=== PATIENT | male | born 1925 | race African-American/Black ===

== ENCOUNTER → 2016-04-11 | Day surgery (SDC) | payer MEDICARE, OTHER ==
[~2016-04-11] VITALS: Ht 188 cm; Wt 73.9 kg
[~2016-04-11] MED LIST: *morphine SULFATE 8 MG/ML PERIprocedure ONLY ONE; ACETAMINOPHEN 325MG/HYDROcodone 7.5MG/15ML UDC PO PRN; AMLO5 PO; APLI5INJ2 ID; ASPI-110 PO; ASPI81TA82 PO; C 50TAB PO; CEFT2INJ IV; CLEAPOW6 PO; CLINDAMYCIN 300 MG/NS 100 ML IV ONE; CLOP75TA PO; COZA50TA PO; DEXAMETHASONE SOD PHOS 4 MG/ML VIAL ONE; DO NOT ADM ANY ANTICOAGULANT DRUGS XX PRN; EXTR500C PO; FAMOTIDINE 20 MG/2 ML VIAL ONE; FERR324T4 PO; FERR325T PO; FERR325T2 PO; FURO20 PO; INSULIN HUMAN REGULAR 1,000 UNITS/10 ML VIAL SQ PRN; LACTATED RINGER'S 1000 ML INJ 1,000 ML IV SCH; LACTATED RINGER'S 1000 ML IV SCH; LOSA50TA PO; METOPROLOL TARTRATE 25 MG TAB PO PRN; NEOSTIGMINE 3 MG/3 ML SYR IV ONE; NRSS SQ; ONDANSETRON HCL 4 MG/2 ML VIAL IV PUSH ONE; OXYMETAZOLINE HCL 0.05% 15 ML NASAL SPRAY ONE; PERC5TAB12 PO; PROPOFOL 200 MG/20 ML AMP IV ONE; PROT40TA PO; ROPI2 PO; SODIUM CHLORID 0.9% 500 ML IV SCH; VIT250TA PO; VITA-13 PO; VITA100064 PO; ZOLP5TAB3 PO
[2016-04-11 11:14] VITALS: BP 124/63; PULSE 50; RESP 16; TEMP 97.6; O2SAT 98
[2016-04-11 13:47] VITALS: BP 183/70; PULSE 60; RESP 16; TEMP 97.5; O2SAT 100
--- NOTE | 2016-04-11 21:42 | EKG ---
Date Performed: 04/11/2016 Time Performed: 10:47:59 PTAGE: 89 years EKG: SINUS BRADYCARDIA MINIMAL VOLTAGE CRITERIA FOR LVH, CONSIDER NORMAL VARIANT BORDERLINE ECG PREVIOUS TRACING : 07/14/2013 22.25 Compared to prior tracing no significant change DOCTOR: Annie Patel Interpretating Date/Time 04/11/2016 21:39:50
--- NOTE | 2016-08-10 12:50 | MP ---
cc: NGA BALBUENA M.D. DATE OF SURGERY: 04/11/2016 SURGEON: Nga Balbuena MD. PREOPERATIVE DIAGNOSIS: Neoplastic lesion of right piriform sinus. POSTOPERATIVE DIAGNOSIS: Neoplastic lesion of right piriform sinus. OPERATION: Direct laryngoscopy with biopsy. INDICATIONS FOR PROCEDURE: Indications are documented in the history and physical. DESCRIPTION OF OPERATION The patient was taken to OR #6 and placed in the supine position following induction of general anesthesia and intubation a shoulder roll and a Hill head drape were put in place and the patient was draped for surgery. A dental guard was put in place and then using a Dedo laryngoscope hypopharynx and larynx were brought into view. The lesion of the right pyriform sinuses immediately identified and biopsies were obtained from this area and passed off the field for histological examination, the remainder of the hypopharynx and larynx was free of lesions. The scope was removed and procedure was terminated. The patient was reversed from anesthesia and taken to recovery in good condition. There were no complications. Blood loss was 10 ml. MD YUSRA De Oliveira/ritu /1:00 PM /12:49 PM
== END | disposition home or self-care (01) ==
LOC: HSDC 10:12
PROVIDERS: ATTEND Otolaryngology
DX: C34.90 Malignant neoplasm of unspecified part of unspecified bronchus or lung (principal); Z01.810 Encounter for preprocedural cardiovascular examination
CPT/HCPCS: 00320; 31540; 88305; 93005; J1100; J2270; J2405; J2710; J7120; 88311

== ENCOUNTER 2016-08-13 10:26 | Inpatient (IN) | payer MEDICARE, OTHER ==
[~2016-08-13] VITALS: Ht 188 cm; Wt 65.4 kg
[~2016-08-13 10:26] MED LIST changes: -*morphine SULFATE 8 MG/ML PERIprocedure ONLY ONE; -ACETAMINOPHEN 325MG/HYDROcodone 7.5MG/15ML UDC PO PRN; -APLI5INJ2 ID; -ASPI81TA82 PO; -CEFT2INJ IV; -CLEAPOW6 PO; -CLINDAMYCIN 300 MG/NS 100 ML IV ONE; -COZA50TA PO; -DEXAMETHASONE SOD PHOS 4 MG/ML VIAL ONE; -DO NOT ADM ANY ANTICOAGULANT DRUGS XX PRN; -EXTR500C PO; -FAMOTIDINE 20 MG/2 ML VIAL ONE; -FERR324T4 PO; -FERR325T2 PO; -FURO20 PO; -INSULIN HUMAN REGULAR 1,000 UNITS/10 ML VIAL SQ PRN; -LACTATED RINGER'S 1000 ML INJ 1,000 ML IV SCH; -LACTATED RINGER'S 1000 ML IV SCH; -METOPROLOL TARTRATE 25 MG TAB PO PRN; -NEOSTIGMINE 3 MG/3 ML SYR IV ONE; -NRSS SQ; -ONDANSETRON HCL 4 MG/2 ML VIAL IV PUSH ONE; -OXYMETAZOLINE HCL 0.05% 15 ML NASAL SPRAY ONE; -PERC5TAB12 PO; -PROPOFOL 200 MG/20 ML AMP IV ONE; -PROT40TA PO; -ROPI2 PO; -SODIUM CHLORID 0.9% 500 ML IV SCH; -VIT250TA PO; -VITA-13 PO; -ZOLP5TAB3 PO
[2016-08-13 10:29] VITALS: BP 150/71; PULSE 66; RESP 24; TEMP 97.6; O2SAT 99
[2016-08-13] MEDS ORDERED: SODIUM CHLOR 0.9% 1000 ML INJ 1,000 ML IV SCH (11:19)
[2016-08-13] MEDS ORDERED: DEXAMETHASONE SOD PHOS 4 MG/ML VIAL IV PUSH ONE (11:30)
[2016-08-13 11:38] LABS: AUTOMATED NEUTROPHIL # 5.2 TH/MM3 (1.8-7.7); BASOPHIL # 0.1 TH/MM3 (0-0.2); BASOPHIL % 0.8 % (0.0-2.0); EOSINOPHIL # 0.1 TH/MM3 (0-0.4); EOSINOPHIL % 0.8 % (0.0-4.0); HEMO FLAGS DIFF FINAL; LYMPH % 13.7 % (9.0-44.0); MEAN CELL VOLUME 76.7 FL (80.0-100.0); MEAN CORPUSCULAR HEMOGLOBIN 24.4 PG (27.0-34.0); MEAN CORPUSCULAR HGB CONC 31.7 % (32.0-36.0); MONO % 10.1 % (0.0-8.0); NEUT % 74.6 % (16.0-70.0); PLATELET COUNT 232 TH/MM3 (150-450); RED BLOOD COUNT 4.05 MIL/MM3 (4.50-5.90); RED CELL DISTRIBUTION WIDTH 16.6 % (11.6-17.2)
[2016-08-13 11:47] VITALS: O2SAT 100
--- NOTE | 2016-08-13 11:48 | PD ---
HPI Chief Complaint: Back/ Neck Pain or Injury Time Seen by Provider: 11:48 Travel History International Travel<30 days: No Contact w/Intl Traveler<30days: No Traveled to known affect area: No History of Present Illness HPI 89-year-old male with history of dementia, diabetes, hypertension, primary lung , and neck cancer, presents to emergency department for evaluation of worsening neck pain and difficulty swallowing. Patient's accompanies him and states that he was diagnosed with a throat cancer approximately one month ago. He was to start radiation treatment Dr. Gray, but she states they have not been contacted in regards to this. She states that the patient has been drooling more often and she saw this morning that he was absolutely unable to swallow any food. Patient is minimally verbal. He grimaces and points to his neck. Patient's states he has otherwise been well. No recent illnesses, fever, or chills. He has no other symptoms to report this time. PFSH Past Medical History Arthritis: Yes Blood Disorders: No Heart Rhythm Problems: No Cancer: No Cardiovascular Problems: No High Cholesterol: Yes Chest Pain: No Congestive Heart Failure: No Cerebrovascular Accident: Yes Diabetes: Yes Patient Takes Glucophage: No Diminished Hearing: Yes (BILATERAL HEARING AIDS) Endocrine: Yes GERD: Yes Glaucoma: No Genitourinary: No Hepatitis: No Hiatal Hernia: No Hypertension: Yes Immune Disorder: No Insomnia: Yes Musculoskeletal: No Neurologic: No (DEMENTIA) Psychiatric: No Respiratory: No Renal Failure: Yes Thyroid Disease: No Tetanus Vaccination: Unknown Influenza Vaccination: No Past Surgical History Abdominal Surgery: No Appendectomy: Yes Cardiac Surgery: No Ear Surgery: No Endocrine Surgery: No Eye Surgery: No Genitourinary Surgery: No Gynecologic Surgery: No Joint Replacement: Yes (LEFT KNEE REPLACED) Oral Surgery: No Thoracic Surgery: No Other Surgery: Yes Social History Alcohol Use: No Tobacco Use: No Substance Use: No Allergies-Medications (Allergen,Severity, Reaction): Coded Allergies: Penicillin (Verified Allergy, Severe, 08/13/16) HIVES Reported Meds & Prescriptions Reported Meds & Active Scripts Active Reported Ferrous Sulfate DR (Ferrous Sulfate) 325 Mg Tabdr 325 Mg PO DAILY Losartan (Losartan Potassium) 50 Mg Tab 50 Mg PO DAILY Clopidogrel (Clopidogrel Bisulfate) 75 Mg Tab 75 Mg PO DAILY Vitamin D (Cholecalciferol) 1,000 Unit Tab 1,000 Units PO DAILY Aspirin 81 (Aspirin) 81 Mg Tabdr 81 Mg PO DAILY C 500 (Ascorbic Acid) 500 Mg Tab 500 Mg PO DAILY Norvasc (Amlodipine Besylate) 5 Mg Tab 5 Mg PO DAILY Review of Systems Except as stated in HPI: all other systems reviewed are Neg Physical Exam Narrative GENERAL: Thin elderly male patient, minimally verbal, in no apparent distress. SKIN: Focused skin assessment warm/dry. HEAD: Atraumatic. Normocephalic. EYES: Pupils equal and round. No scleral icterus. No injection or drainage. ENT: No nasal bleeding or discharge. Mucous membranes pink and moist. NECK: Trachea midline. No JVD. Tenderness elicited to palpation along the mandible and right interior lateral neck. CARDIOVASCULAR: Bradycardic rate and rhythm. No murmur appreciated. RESPIRATORY: No accessory muscle use. Coarse, diminished to auscultation. Breath sounds equal bilaterally. GASTROINTESTINAL: Abdomen soft, non-tender, nondistended. Hepatic and splenic margins not palpable. MUSCULOSKELETAL: No obvious deformities. No clubbing. No cyanosis. No edema. NEUROLOGICAL: Awake and alert. No obvious cranial nerve deficits. Minimal speech. Data Data Last Documented VS Vital Signs Date Time Temp Pulse Resp B/P Pulse Ox O2 Delivery O2 Flow Rate FiO2 08/13/16 12:00 56 24 168/74 98 Room Air 08/13/16 10:29 97.6 Orders Basic Metabolic Panel (Bmp) (08/13/16 11:19) Complete Blood Count With Diff (08/13/16 11:19) Prothrombin Time / Inr (Pt) (08/13/16 11:19) Act Partial Throm Time (Ptt) (08/13/16 11:19) Iv Access Insert/Monitor (08/13/16 11:19) Ecg Monitoring (08/13/16 11:19) Oximetry (08/13/16 11:19) Sodium Chlor 0.9% 1000 Ml Inj (Ns 1000 M (08/13/16 11:19) Sodium Chloride 0.9% Flush (Ns Flush) (08/13/16 11:30) Electrocardiogram (08/13/16 11:19) Ct Soft Tiss Neck W Iv Cont (08/13/16 ) Dexamethasone Inj (Decadron Inj) (08/13/16 11:30) Iohexol 350 Inj (Omnipaque 350 Inj) (08/13/16 12:51) Labs Laboratory Tests Test 08/13/16 11:25 White Blood Count 7.0 TH/MM3 Red Blood Count 4.05 MIL/MM3 Hemoglobin 9.9 GM/DL Hematocrit 31.0 % Mean Corpuscular Volume 76.7 FL Mean Corpuscular Hemoglobin 24.4 PG Mean Corpuscular Hemoglobin 31.7 % Concent Red Cell Distribution Width 16.6 % Platelet Count 232 TH/MM3 Mean Platelet Volume 9.3 FL Neutrophils (%) (Auto) 74.6 % Lymphocytes (%) (Auto) 13.7 % Monocytes (%) (Auto) 10.1 % Eosinophils (%) (Auto) 0.8 % Basophils (%) (Auto) 0.8 % Neutrophils # (Auto) 5.2 TH/MM3 Lymphocytes # (Auto) 1.0 TH/MM3 Monocytes # (Auto) 0.7 TH/MM3 Eosinophils # (Auto) 0.1 TH/MM3 Basophils # (Auto) 0.1 TH/MM3 CBC Comment DIFF FINAL Differential Comment Prothrombin Time 11.0 SEC Prothromb Time International 1.0 RATIO Ratio Activated Partial 25.1 SEC Thromboplast Time Sodium Level 140 MEQ/L Potassium Level 4.5 MEQ/L Chloride Level 106 MEQ/L Carbon Dioxide Level 27.7 MEQ/L Anion Gap 6 MEQ/L Blood Urea Nitrogen 31 MG/DL Creatinine 1.81 MG/DL Estimat Glomerular Filtration 43 ML/MIN Rate Random Glucose 80 MG/DL Calcium Level 8.8 MG/DL [facility] Medical Decision Making Medical Screen Exam Complete: Yes Emergency Medical Condition: Yes Medical Record Reviewed: Yes Differential Diagnosis Metastatic disease versus obstruction versus electrode abnormality versus neoplasm Narrative Course 89-year-old male presents to the emergency department for evaluation of worsening neck pain, difficulty swallowing. Patient appears without distress. He does have tenderness with palpation of the anterior lateral right neck. He is given Decadron IV and lab work is collected. Laboratory Tests Test 08/13/16 11:25 White Blood Count 7.0 TH/MM3 Red Blood Count 4.05 MIL/MM3 Hemoglobin 9.9 GM/DL Hematocrit 31.0 % Mean Corpuscular Volume 76.7 FL Mean Corpuscular Hemoglobin 24.4 PG Mean Corpuscular Hemoglobin 31.7 % Concent Red Cell Distribution Width 16.6 % Platelet Count 232 TH/MM3 Mean Platelet Volume 9.3 FL Neutrophils (%) (Auto) 74.6 % Lymphocytes (%) (Auto) 13.7 % Monocytes (%) (Auto) 10.1 % Eosinophils (%) (Auto) 0.8 % Basophils (%) (Auto) 0.8 % Neutrophils # (Auto) 5.2 TH/MM3 Lymphocytes # (Auto) 1.0 TH/MM3 Monocytes # (Auto) 0.7 TH/MM3 Eosinophils # (Auto) 0.1 TH/MM3 Basophils # (Auto) 0.1 TH/MM3 CBC Comment DIFF FINAL Differential Comment Prothrombin Time 11.0 SEC Prothromb Time International 1.0 RATIO Ratio Activated Partial 25.1 SEC Thromboplast Time Sodium Level 140 MEQ/L Potassium Level 4.5 MEQ/L Chloride Level 106 MEQ/L Carbon Dioxide Level 27.7 MEQ/L Anion Gap 6 MEQ/L Blood Urea Nitrogen 31 MG/DL Creatinine 1.81 MG/DL Estimat Glomerular Filtration 43 ML/MIN Rate Random Glucose 80 MG/DL Calcium Level 8.8 MG/DL Last Impressions Neck CT 08/13/16 0000 Signed Impressions: Service Date/Time: Saturday, August 13, 2016 12:40 - CONCLUSION: Mass in the low right oropharynx. Left apical lung mass. Franc Ramachandran MD A call was placed to Dr. Castanon to discuss plan of care. Dr. Granda returned the call, but advised contacting Dr. Castanon in the [facility] office. [id number] Castanon. He requested an admission for pain control/discuss palliative measures with family and he will consult on the patient. Diagnosis Primary Impression: Mass of oropharynx Additional Impressions: Difficulty swallowing Qualified Code: R13.10 - Dysphagia, unspecified type Neck pain on right side Admitting Information Admitting Physician Requests: Observation Condition: Stable Alyssa Samuels AKIL Aug 13, 2016 11:48
[2016-08-13 11:55] LABS: APTT (PATIENT) 25.1 SEC (24.3-30.1); BICARBONATE 27.7 MEQ/L (21.0-32.0); POTASSIUM 4.5 MEQ/L (3.5-5.1)
[2016-08-13 12:00] VITALS: BP 168/74; PULSE 56; RESP 24; O2SAT 98
[2016-08-13] MEDS ORDERED: IOHEXOL 350 MG/ML 10 ML VIAL (for RAD DIAG) IV ONE (12:51)
--- NOTE | 2016-08-13 13:06 | RADRPT ---
EXAM DATE/TIME: 08/13/2016 12:40 [facility] COMPARISON: No previous studies available for comparison. INDICATIONS : Right neck pain and difficulty swallowing. History of neck cancer. IV CONTRAST: 75 cc Omnipaque 350 (iohexol) IV RADIATION DOSE: 17.64 CTDIvol (mGy) MEDICAL HISTORY : Diabetes mellitus type 2. Dementia. Hypertension.Neck cancer SURGICAL HISTORY : None. ENCOUNTER: Initial ACUITY: 1 day PAIN SCALE: 0/10 LOCATION: Right neck TECHNIQUE: Volumetric scanning of the neck was performed. Using automated exposure control and adjustment of th e mA and/or kV according to patient size, radiation dose was kept as low as reasonably achievable to obtain optimal diagnostic quality images. DICOM format image data is available electronically for r eview and comparison. FINDINGS: There is a large mass in the right oropharynx which appears to extend down to the level of the larynx with some asymmetric bowing and thickening of the right vocal cord. A lobular left apical lung mass is present. The visualized brain and orbitofacial structures are unremarkable. There is no definite evidence of pathologic cervical lymphadenopathy. No supraclavicular adenopathy i s present. CONCLUSION: Mass in the low right oropharynx. Left apical lung mass. Franc Ramachandran MD on August 13, 2016 at 12:58 Board Certified Radiologist. This report was verified electronically.
[2016-08-13] MEDS ORDERED: FERR325T2 PO (14:01)
[2016-08-13] MEDS: DEXT 5%-NACL 0.9% 1000 ML INJ 1,000 ML IV SCH (14:54)
--- NOTE | 2016-08-13 15:49 | RADRPT ---
EXAM DATE/TIME: 08/13/2016 15:42 [facility] COMPARISON: No previous studies available for comparison. INDICATIONS : Shortness of breath. Cough. MEDICAL HISTORY : Diabetes mellitus type 2. Dementia. Hypertension.Neck cancer SURGICAL HISTORY : None. ENCOUNTER: Initial ACUITY: 1 day PAIN SCORE: 0/10 LOCATION: Bilateral chest FINDINGS: Patchy airspace disease is present in the left upper lobe suspicious for inflammatory process. There is minimal elevation left hemidiaphragm. The right lung is clear. The heart and pulmonary vascular ity are normal. The portion of the bony skeleton visualized is unremarkable. CONCLUSION: Minimal parenchymal changes left upper lobe suspicious for an early inflammatory proc ess. Benny Esquivel MD FACR on August 13, 2016 at 15:46 Board Certified Radiologist. This report was verified electronically.
--- NOTE | 2016-08-13 15:53 | HHI.HP ---
[facility] Rashi Lott Admission Diagnosis oropharynx mass; dysphagia; dehydration; neck/lung ca Diagnoses: Chief Complaint: difficulty swallowing Travel History International Travel<30 Days: No Contact w/Intl Traveler <30 Da: No Traveled to Known Affected Are: No History of Present Illness patient is an 89 years sold male with history of non small cell Lung cancer 2015 - refused treatment then. 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 He presented today with increasing anterior neck pain/discomfort and difficulty swallowing. With decreasing po intake. Patient admitted for further evaluation and management. Voice hoarseness worsening. Patient denies any fever or chills, admits to choking sensation, denies any headaches, abdominal pain, bone pain. Review of Systems Constitutional: DENIES: Diaphoretic episodes, Fatigue, Fever, Weight gain, Weight loss, Chills, Dizziness, Change in appetite, Night Sweats Endocrine: DENIES: Heat/cold intolerance, Polydipsia, Polyuria, Polyphagia Eyes: DENIES: Blurred vision, Diplopia, Eye inflammation, Eye pain, Vision loss , Photosensitivity, Double Vision Ears, nose, mouth, throat: COMPLAINS OF: Hoarseness Respiratory: COMPLAINS OF: Cough Cardiovascular: DENIES: Chest pain, Palpitations, Syncope, Dyspnea on Exertion , PND, Lower Extremity Edema, Orthopnea, Claudication Gastrointestinal: DENIES: Abdominal pain, Black stools, Bloody stools, Constipation, Diarrhea, Nausea, Vomiting, Difficulty Swallowing, Anorexia Genitourinary: DENIES: Sexual dysfunction, Urinary frequency, Urinary incontinence, Urgency, Hematuria, Dysuria, Nocturia, Penile Discharge, Testicular Pain, Testicular Swelling Musculoskeletal: DENIES: Joint pain, Muscle aches, Stiffness, Joint Swelling, Back pain, Neck pain Integumentary: DENIES: Abnormal pigmentation, Nail changes, Pruritus, Rash Hematologic/lymphatic: DENIES: Bruising, Lymphadenopathy Immunologic/allergic: DENIES: Eczema, Urticaria Neurologic: DENIES: Abnormal gait, Headache, Localized weakness, Paresthesias, Seizures, Speech Problems, Tremor, Poor Balance Psychiatric: DENIES: Anxiety, Confusion, Mood changes, Depression, Hallucinations, Agitation, Suicidal Ideation, Homicidal Ideation, Delusions Past Family Social History Past Medical History hypertesnion Anemia Lung cancer PVD DM- - at one point was on oral medications- per patient discontinued Past Surgical History right hallux amputation left knee surgery right anterior tibial angioplasty/atherectomy Reported Medications Amlodipine 5 mg daily Ferrous sulfate 325 mg po daily Vit C 500 mg daily' Vit D daily Allergies: Coded Allergies: Penicillin (Verified Allergy, Severe, 08/13/16) HIVES Family History + family history of cancer Social History heavy smoker quit 20 years ago no chornic alcohol use Physical Exam Vital Signs Vital Signs Date Time Temp Pulse Resp B/P Pulse Ox O2 Delivery O2 Flow Rate FiO2 08/13/16 12:00 56 24 168/74 98 Room Air 08/13/16 11:47 100 Room Air 08/13/16 11:09 70 20 08/13/16 10:29 97.6 66 24 150/71 99 Room Air Physical Exam GENERAL:, in no apparent distress. hoarse voice SKIN: No rashes, ecchymoses or lesions. Cool and dry. HEAD: Atraumatic. Normocephalic. No temporal or scalp tenderness. EYES: Pupils equal round and reactive. Extraocular motions intact. No scleral icterus. No injection or drainage. ENT: Nose without bleeding, . Throat without erythema, tonsillar hypertrophy or exudate. Uvula midline. Airway patent. NECK: Trachea midline. No JVD or lymphadenopathy. Supple, nontender, no meningeal signs. CARDIOVASCULAR: Regular rate and rhythm without murmurs, gallops, or rubs. RESPIRATORY: + rhonchi. coarse breath sounds GASTROINTESTINAL: Abdomen soft, non-tender, nondistended.. No guarding. MUSCULOSKELETAL: Extremities without clubbing, cyanosis, or edema. No joint tenderness, effusion, or edema noted. No calf tenderness. Negative Homans sign bilaterally. NEUROLOGICAL: Awake and alert. Cranial nerves II through XII intact. Motor and sensory grossly within normal limits. Five out of 5 muscle strength in all muscle groups. Normal speech. Laboratory Laboratory Tests Test 08/13/16 11:25 White Blood Count 7.0 Red Blood Count 4.05 Hemoglobin 9.9 Hematocrit 31.0 Mean Corpuscular Volume 76.7 Mean Corpuscular Hemoglobin 24.4 Mean Corpuscular Hemoglobin 31.7 Concent Red Cell Distribution Width 16.6 Platelet Count 232 Mean Platelet Volume 9.3 Neutrophils (%) (Auto) 74.6 Lymphocytes (%) (Auto) 13.7 Monocytes (%) (Auto) 10.1 Eosinophils (%) (Auto) 0.8 Basophils (%) (Auto) 0.8 Neutrophils # (Auto) 5.2 Lymphocytes # (Auto) 1.0 Monocytes # (Auto) 0.7 Eosinophils # (Auto) 0.1 Basophils # (Auto) 0.1 CBC Comment DIFF FINAL Differential Comment Prothrombin Time 11.0 Prothromb Time International 1.0 Ratio Activated Partial 25.1 Thromboplast Time Sodium Level 140 Potassium Level 4.5 Chloride Level 106 Carbon Dioxide Level 27.7 Anion Gap 6 Blood Urea Nitrogen 31 Creatinine 1.81 Estimat Glomerular Filtration 43 Rate Random Glucose 80 Calcium Level 8.8 Result Diagram: 08/13/16 1125 08/13/16 1125 Imaging Last Impressions Neck CT 08/13/16 0000 Signed Impressions: Service Date/Time: Saturday, August 13, 2016 12:40 - CONCLUSION: Mass in the low right oropharynx. Left apical lung mass. Franc Ramachandran MD Assessment and Plan Assessment and Plan 89 years old male Odynophagia, dysphagia , dyarthria from Extrinsic compression from Head and neck cancer start IVF. consult Radiation Oncology- Isaac Joy- hopefully radiation treatment can be initiated here to help shrink tumor - Medical Oncology was consulted Speech therapy evaluation daily may need to consider PEG- transiently to meet nutritional requirement and meds administration route get a CXR- high aspiration risk- keep NPO R/o Aspiration Pneumonia - coarse breath sounds Underlying COPD Exacerbation check CXR.- for infiltrates.if + infiltrates- start Flagyl for anaerobic coverage- + PCN allery. no WBC elevation, no fever. IV solumedrol chronic kidney insufficiency- creatinine near baseline start IVF-poor po. Microcytic anemia- check iron studies History of hypertension- monitor off CCB Heparin SQ for DVT prophylaxis PPI for GI prophylaxis Physician Certification 2 Midnight Certification Type: Admission for Inpatient Services Order for Inpatient Services The services are ordered in accordance with Medicare regulations or non- Medicare payer requirements, as applicable. In the case of services not specified as inpatient-only, they are appropriately provided as inpatient services in accordance with the 2-midnight benchmark. Estimated LOS (days): 3 days is the estimated time the patient will need to remain in the hospital, assuming treatment plan goals are met and no additional complications. Post-Hospital Plan: Not yet determined Trinh Prabhakar MD Aug 13, 2016 15:53
[2016-08-13 16:00] VITALS: BP 179/79; PULSE 57; RESP 24; O2SAT 97
[2016-08-13] MEDS: metroNIDAZOLE 500 MG INJ 100 ML IV SCH (19:18)
[2016-08-13] MEDS: methylPREDNISolone SOD SUCC 40 MG/1 ML VIAL IV PUSH SCH ×2 (19:18→21:30)
[2016-08-13] MEDS: PANTOPRAZOLE SODIUM 40 MG VIAL IV PUSH SCH (19:18)
[2016-08-13 20:00] VITALS: BP 156/72; PULSE 64; RESP 20; TEMP 97.2; O2SAT 96
[2016-08-13] MEDS: HEPARIN SODIUM - SQ 10,000 UNITS/ML VIAL SQ SCH (21:30)
[2016-08-13 21:44] VITALS: BP 136/65; PULSE 102; RESP 18; TEMP 99; O2SAT 94
[2016-08-14] VITALS: BP 147/67; PULSE 53; RESP 20; TEMP 97.9; O2SAT 97
[2016-08-14] MEDS: metroNIDAZOLE 500 MG INJ 100 ML IV SCH ×3 (02:34→17:35)
[2016-08-14] MEDS: DEXT 5%-NACL 0.9% 1000 ML INJ 1,000 ML IV SCH ×2 (02:35→13:43)
[2016-08-14] MEDS: methylPREDNISolone SOD SUCC 40 MG/1 ML VIAL IV PUSH SCH ×3 (05:28→20:43)
[2016-08-14 07:41] LABS: ANION GAP 9 MEQ/L (5-15); AST (GOT) 11 U/L (15-37); BICARBONATE 23.8 MEQ/L (21.0-32.0); BLOOD UREA NITROGEN 26 MG/DL (7-18); CHLORIDE 108 MEQ/L (98-107); GLOMERULAR FILTRATION RATE 49 ML/MIN (>89); POTASSIUM 4.5 MEQ/L (3.5-5.1); SODIUM (NA) 141 MEQ/L (136-145)
[2016-08-14 08:00] VITALS: BP 108/54; PULSE 60; RESP 16; TEMP 97.3; O2SAT 97
[2016-08-14 08:06] LABS: ALKALINE PHOSPHATASE 76 U/L (45-117); ALT (GPT) 14 U/L (12-78); FERRITIN 19 NG/ML (26-388); INDIRECT BILIRUBIN 0.2 MG/DL (0.0-0.8); TOTAL BILIRUBIN ADULT 0.3 MG/DL (0.2-1.0); TRANSFERRIN IRON PROFILE 203 MG/DL (200-360)
[2016-08-14] MEDS: HEPARIN SODIUM - SQ 10,000 UNITS/ML VIAL SQ SCH ×2 (08:21→20:42)
--- NOTE | 2016-08-14 08:32 | HHI.PR ---
Subjective Remarks states had a good night sleep coughing occasionally on his own secretions complains of throat/neck discomfort- mostly on the right side Objective Vitals Vital Signs Date Time Temp Pulse Resp B/P Pulse Ox O2 Delivery O2 Flow Rate FiO2 08/14/16 08:00 97.3 60 16 108/54 97 08/14/16 00:00 97.9 53 20 147/67 97 08/13/16 20:00 97.2 64 20 156/72 96 08/13/16 16:00 57 24 179/79 97 Room Air 08/13/16 12:00 56 24 168/74 98 Room Air 08/13/16 11:47 100 Room Air 08/13/16 11:09 70 20 08/13/16 10:29 97.6 66 24 150/71 99 Room Air I/O 08/13/16 08/13/16 08/13/16 08/14/16 08/14/16 08/14/16 07:00 15:00 23:00 07:00 15:00 23:00 Intake Total 360 ml 744 ml Output Total 400 ml 600 ml Balance -40 ml 144 ml Intake Oral 360 ml IV Total 744 ml Output Urine Total 400 ml 600 ml # Bowel Movements 0 1 Result Diagram: 08/13/16 1125 08/14/16 0551 Imaging Last Impressions Neck CT 08/13/16 0000 Signed Impressions: Service Date/Time: Saturday, August 13, 2016 12:40 - CONCLUSION: Mass in the low right oropharynx. Left apical lung mass. Franc Ramachandran MD Chest X-Ray 08/13/16 0000 Signed Impressions: Service Date/Time: Saturday, August 13, 2016 15:42 - CONCLUSION: Minimal parenchymal changes left upper lobe suspicious for an early inflammatory process. Benny Esquivel MD FACR Objective Remarks awake and alert, oriented x 3 anicteric lungs- occasional rhonchi, no wheezes regular rhythm abdomen soft, nontender extremities no edema neuro exam- non focal A/P Assessment and Plan 89 years old male Odynophagia, dysphagia , dysarthria from Extrinsic compression from Head and neck cancer consult Radiation Oncology- Isaac Joy- hopefully radiation treatment can be initiated here to help shrink tumor D/W - Medical Oncology - he will speak with Dr. Gray d/w Speech therapist- do a modified barium swallow study may need to consider PEG- transiently to meet nutritional requirement and meds administration route GI consult to evaluate- PEG placement Aspiration Pneumonia + lung infiltrates Underlying COPD Exacerbation on flagyl 500 mg IV.+ Levaquin IV solumedrol. duonebs qid chronic kidney insufficiency- creatinine near baseline continue IV Iron deficiency anemia- Microcytic anemia- IV Iron x 1. start po in am History of hypertension- - good readings - monitor off CCB Heparin SQ for DVT prophylaxis PPI for GI prophylaxis Discharge Planning case management Trinh Prabhakar MD Aug 14, 2016 08:31
[2016-08-14] MEDS: RESP: ALBUTEROL 2.5 MG/IPRATROPIUM 0.5 MG NEB (SCH) NEB ×4 (08:45→20:00)
[2016-08-14] MEDS ORDERED: IRON SUCROSE INJ 200 MG in SODIUM CHLORIDE 0.9% INJ 100 ML IV ONE (09:30)
--- NOTE | 2016-08-14 10:14 | RADRPT ---
EXAM DATE/TIME: 08/14/2016 09:40 [facility] COMPARISON: No previous studies available for comparison. INDICATIONS : Dysphagia. FLUORO TIME: 2.4 minutes IMAGE COUNT: 1 CONTRAST: Dose as prescribed by speech pathologist. MEDICAL HISTORY : Diabetes mellitus type II. Hypertension. lung ca in 2013, untreated. neck cancer SURGICAL HISTORY : None. ENCOUNTER: Initial ACUITY: 2 days PAIN SCORE: Non-responsive. LOCATION: Bilateral neck FINDINGS: A modified barium swallow was performed with speech pathology. Patient was given a variety of liquids to swallow. Penetration and possible trace aspiration was noted with thin consistencies. For a full detailed report, see report by the speech pathologist. CONCLUSION: Penetration with possible trace aspiration noted with thin liquid. Martin Beaver MD on August 14, 2016 at 10:12 Board Certified Radiologist. This report was verified electronically.
[2016-08-14] MEDS: LEVOFLOXACIN 500 MG PREMIX INJ 100 ML IV SCH (11:53)
[2016-08-14 12:00] VITALS: BP 152/68; PULSE 57; RESP 16; TEMP 97.4; O2SAT 96
--- NOTE | 2016-08-14 17:20 | EKG ---
Date Performed: 08/13/2016 Time Performed: 11:59:42 PTAGE: 89 years EKG: SINUS BRADYCARDIA MINIMAL VOLTAGE CRITERIA FOR LVH, CONSIDER NORMAL VARIANT BORDERLINE ECG PREVIOUS TRACING : 04/11/2016 10.47 Compared to prior tracing no significant change DOCTOR: Wally Albarado Interpretating Date/Time 08/14/2016 17:18:23
[2016-08-14] MEDS: PANTOPRAZOLE SODIUM 40 MG VIAL IV PUSH SCH (17:34)
[2016-08-14] MEDS ORDERED: LACTATED RINGER'S 1000 ML IV PRN (19:15)
[2016-08-14] MEDS ORDERED: INSULIN HUMAN REGULAR 1,000 UNITS/10 ML VIAL SQ PRN (19:15)
[2016-08-14] MEDS ORDERED: METOPROLOL TARTRATE 25 MG TAB PO PRN (19:15)
[2016-08-14] MEDS ORDERED: SODIUM CHLORID 0.9% 500 ML IV PRN (19:15)
[2016-08-14] MEDS ORDERED: CHLORHEXIDINE GLUCONATE 2 % 1 PACK (2 CLOTHS) TOPICAL PRN (19:15)
[2016-08-14] MEDS ORDERED: POVIDONE IODINE 5% (ANTISEPSIS KIT) 4 APPLICATIONS EACH NARE PRN (19:15)
[2016-08-14 20:19] VITALS: BP 137/56; PULSE 58; RESP 17; TEMP 98.2; O2SAT 94
--- NOTE | 2016-08-14 20:31 | MB ---
cc: GONSALO LUNDBERG LOUIS M. MD LACIERDA, ALFEA DATE OF CONSULTATION: 08/14/2016 REFERRING PHYSICIAN: Dr. Prabhakar REASON FOR CONSULTATION: Dysphagia. HISTORY This is an 89 year-old -Swedish male admitted with neck pain and difficulty swallowing. The patient has a history of sfg-ecfqy-ozfg lung cancer, was diagnosed two or three years ago but he apparently refused treatment. 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 The patient is somewhat of a poor historian. SOCIAL HISTORY He states he is . He did smoke and drink alcohol for many years but has quit. PAST MEDICAL HISTORY: Remarkable for: 1. Hypertension. 2. Chronic kidney disease. 3. History of anemia. 4. 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 5. History of nonsmall cell lung cancer. 6. Peripheral vascular disease. 7. Diabetes mellitus. PAST SURGICAL HISTORY: 1. Right hallux amputation. 2. Left knee surgery. 3. Right anterior tibial angioplasty arthrectomy. MEDICATIONS AT HOME: 1. Amlodipine 5 milligrams daily. 2. Iron sulfate 325 milligrams daily. 3. Vitamin C 500 milligrams daily. 4. Vitamin D supplement. ALLERGIES PENICILLIN. Causes hives. FAMILY HISTORY: Noncontributory. REVIEW OF SYSTEMS: Remarkable for his dysphagia and neck discomfort. He states he has had three bowel movements today without any gross bleeding. No abdominal pain or chest pain. No shortness of breath. He has had a cough. PHYSICAL EXAMINATION: Reveals a thin male in no acute distress. VITAL SIGNS: Blood pressure is 152/68, pulse 57, respiratory rate 16, nonlabored. Temperature 97.4 orally. HEENT: He is edentulous. NECK: Fullness just right of the glottis with some tenderness. LUNGS: Reveal scattered rhonchi bilaterally. HEART: Heart sounds are distant. ABDOMEN: Soft, nondistended. No focal tenderness. No masses, no organomegaly. RECTAL: Deferred. EXTREMITIES: No peripheral edema. SKIN: Warm and dry. Alert and oriented. LABORATORY WORK: Reveals a white count of 7, hemoglobin 9.9 with an MCV of 76, platelet count 232,000. INR of 1.0. BUN 26, creatinine 1.62. Iron saturation of 10%, ferritin low at 19. LFTs are unremarkable. Albumin is low at 3.1. B12 378, folate 16.6. Potassium 4.5. IMAGING STUDIES: Neck CT scan shows a mass in the low right oropharynx and a left apical lung mass. Chest x-ray shows minimal parenchymal changes, left upper lobe, suspicious for an early inflammatory process. He underwent a modified barium swallow today by speech pathology that showed mild oral phase dysphagia and severe pharyngeal dysphagia. The patient exhibited penetration and silent aspiration for nectar thickened liquids but no aspiration viewed for honey thickened puree consistency. IMPRESSION: 1. Dysphagia due to head and neck cancer. Patient at risk for aspiration. The plan is to evaluate the patient for possible radiation therapy. PLAN: Agree with the indications for alternate feeding with G-tube. The patient would not be a candidate for esophageal dilation. G-tube can be placed endoscopically or percutaneously by radiology. I discussed the potential benefit of the G-tube and that it can later be removed if no longer needed. I reviewed the risks of placing it such as bleeding and infection. Will tentatively schedule for tomorrow with Dr. Gonzalez who will be taking over our service. Thank you for the consultation. MD ANTON Castro/ADALBERTO /4:53 PM /8:23 PM FIORELLA
--- NOTE | 2016-08-14 21:45 | MB ---
cc: CHAD ARCHULETA,FELIZ Reynolds MD DATE OF CONSULTATION 08/14/2016 REASON FOR CONSULTATION Dysphagia. HISTORY OF THE PRESENT ILLNESS This is an 89-year-old male with lung cancer. He has an oropharyngeal mass that is making it difficult for him to swallow. He has been losing some weight. Radiation therapy is planned. He will need a PEG tube in order to receive nutrition during that time. He had a swallowing study on admission which shows a minor amount of aspiration with swallowing thin liquids. His CT scan of the neck shows the oropharyngeal mass and also a mass in the upper lung. PAST MEDICAL HISTORY Positive for: 1. Hypertension. 2. Peripheral vascular disease. 3. Diabetes, at one point he was on medications. PAST SURGICAL HISTORY Negative for abdominal surgery. MEDICATIONS Current medications: 1. Amlodipine. 2. Iron sulfate. 3. Vitamin C. 4. Vitamin B. He does not take anticoagulants. Since admission he has been on heparin 5000 units subcutaneous q.12h. This has been held prior to his procedure. SOCIAL HISTORY He was a heavy smoker but quit 20 years ago. Does not report alcohol use. FAMILY HISTORY Positive for cancer. REVIEW OF SYSTEMS The patient denies any abdominal pain, shortness of breath, chest pain. Denies headache, earache or sore throat. He does have the dysphagia. He does not report any dysuria. Otherwise complete review of systems is negative. PHYSICAL EXAMINATION GENERAL: He is a well appearing -[place] male in no apparent distress. He is alert and oriented times three. His speech is slightly garbled and there is slight asymmetry to his face. SKIN: There is no rash or other lesions. NECK: Supple and nontender. HEART: Regular rate and rhythm and no murmurs or gallops. RESPIRATORY: Positive for rhonchi. No rales. ABDOMEN: Soft and nontender. Nondistended. Bowel sounds are present. EXTREMITIES: Are without cyanosis. NEUROLOGIC: Normal except for as mentioned above. LABORATORY DATA Hematocrit is 31%, white blood cell count 7000, platelet count 232. IMAGING The CT scan of the neck as reported above. IMPRESSION 1. Dysphagia and dysarthria from oropharyngeal mass causing loss of weight. 2. Lung cancer which will need radiation treatment. 3. The patient is unable to maintain oral nutrition. PLAN We will perform EGD with placement of a PEG tube tomorrow. He will be kept n.p.o. after midnight and his heparin will be held in the morning. Feliz Bansal MD HHS/KK /5:14 PM /9:29 PM
--- NOTE | 2016-08-14 21:55 | MB ---
cc: SELENA WILLS M.D. DATE OF CONSULTATION August 14, [address] Prabhakar REASON FOR CONSULTATION Oncology consulted to render opinion regarding patient with lung cancer and head and neck cancer, presented with dysphagia and weakness. 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 He also has generalized weakness. He was not able to eat. He is able to drink some water but tend to choke on it. He has seen Dr. Gray recently to consider radiation therapy. However, the patient did not show up for simulation and treatment. He denies fever, chill. As stated, he lost more weight but could not quantify. He denies any chest pain or palpitation. Denies significant shortness of breath or cough. Denies abdominal pain, dysuria, hematuria PAST MEDICAL HISTORY Past medical history of jar-omxol-tiit lung cancer diagnosed in 2015. He had mediastinal adenopathy, clinically, stage IIIA. He has declined treatment. Hypopharyngeal squamous cell carcinoma. Hypertension. Anemia. Diabetes mellitus. Peripheral vascular disease. Hyperlipidemia, osteoarthritis, stroke. PAST SURGICAL HISTORY Right hallux amputation. Anterior ___ plasty and arthrectomy, left knee surgery. FAMILY HISTORY Noncontributory. SOCIAL HISTORY Quit tobacco more than 20 years ago. Denies any alcohol use. Lives with his . ALLERGIES PENICILLIN. CURRENT MEDICATIONS 1. Levaquin. 2. DuoNebs. 3. Heparin. 4. Protonix. 5. Flagyl. 6. Solu-Medrol. REVIEW OF SYSTEMS CONSTITUTIONAL: Has more weight loss but cannot quantify. He had increased weakness. EYES: Denies any blurry vision or double vision. ENT: As above. CARDIOVASCULAR: No chest or palpitation. RESPIRATORY: Denies shortness of breath, cough. GI: As above. : No dysuria, hematuria. MUSCULOSKELETAL: No significant pain. HEMATOLOGY: Negative. ENDOCRINE: Negative. DERMATOLOGY: Negative. PSYCHIATRIC: Negative. NEUROLOGIC: Negative. PHYSICAL EXAMINATION VITAL SIGNS: Temperature 97.4, blood pressure 152/68, O2 saturation 96%. GENERAL: He is alert and oriented x3, no acute distress. Looks weak. HEENT: Atraumatic, normocephalic. Pupils are equal, round and reactive to light. Extraocular muscles intact. No sclerae icterus. Hard of hearing. NECK: Tender in the right neck, fullness in the right neck, could not palpate discrete mass. No thyromegaly. CARDIOVASCULAR: Regular S1-S2. No murmur. LUNGS: Clear to auscultation anteriorly. ABDOMEN: Soft, nontender. Could not palpate liver, spleen. EXTREMITIES: No cyanosis, no significant edema. BACK: No paravertebral tenderness. SKIN: No rash or petechiae. NEUROLOGIC: Nonfocal. LABORATORY DATA Laboratory data reviewed. ASSESSMENT 1. Hypopharyngeal squamous cell carcinoma. PET scan showed hypermetabolic mass in the right side of hypopharynx measured 3.6 x 3.5 cm. There is no clear evidence of metastasis in the neck lymph node. He was supposed to follow up with Dr. Gray for palliative radiation. However, he did not show up for simulation. I have discussed with Dr. Gray. The patient still wants some treatment for his head and neck cancer which I think is reasonable so that he could swallow and treatment could also relieve some of his pain. Dr. Gray is going to bring him down to radiation oncology department for simulation this week. He has very poor performance status and I do not think he could tolerate concurrent chemotherapy. 2. Left lung cancer diagnosed 2014. Last PET scan showed 3.4 cm mass in left upper lobe with hypermetabolic mediastinal adenopathy. His disease is progressing very slowly. He has no significant pulmonary symptom. 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 He is not interested in treatment of lung cancer at this point. 3. Dysphagia and odynophagia due to the neck mass. He appeared to have aspiration also. I have talked to him about PEG tube placement and he agrees. Discussed with Dr. Prabhakar and she is going to consult gastroenterology for the PEG tube placement. 4. Peripheral vascular disease status post amputation of right hallux. 5. Osteoarthritis, chronic back pain. 6. Diabetes mellitus. 7. Hypertension. 8. History of stroke. PLAN 1. Recommend PEG tube placement. 2. Discussed case with Dr. Gray and he will bring the patient down for simulation this week. 3. Continue supportive care. Thank you Dr. Prabhakar for asking me to see this patient. MD TIERA Riley /5:36 PM /9:36 PM MTDMeghna
[2016-08-15 00:13] VITALS: BP 166/83; PULSE 60; RESP 17; TEMP 97.3; O2SAT 94
[2016-08-15] MEDS: metroNIDAZOLE 500 MG INJ 100 ML IV SCH ×3 (01:34→18:02)
[2016-08-15] MEDS: DEXT 5%-NACL 0.9% 1000 ML INJ 1,000 ML IV SCH ×2 (02:30→14:25)
[2016-08-15 04:37] VITALS: BP 149/65; PULSE 58; RESP 16; TEMP 96.9; O2SAT 94
[2016-08-15] MEDS: methylPREDNISolone SOD SUCC 40 MG/1 ML VIAL IV PUSH SCH ×3 (05:49→21:13)
--- NOTE | 2016-08-15 07:56 | HHI.PR ---
Subjective Remarks complains of discomfort on the right submandibular area with swallowing noted some drooling hoarse voice Objective Vitals Vital Signs Date Time Temp Pulse Resp B/P Pulse Ox O2 Delivery O2 Flow Rate FiO2 08/15/16 04:37 96.9 58 16 149/65 94 08/15/16 00:13 97.3 60 17 166/83 94 08/14/16 20:19 98.2 58 17 137/56 94 08/14/16 12:00 97.4 57 16 152/68 96 08/14/16 08:00 97.3 60 16 108/54 97 I/O 08/14/16 08/14/16 08/14/16 08/15/16 08/15/16 08/15/16 07:00 15:00 23:00 07:00 15:00 23:00 Intake Total 744 ml 400 ml 936 ml 779 ml Output Total 600 ml 1525 ml 600 ml Balance 144 ml 400 ml -589 ml 179 ml Intake Oral 0 ml 380 ml IV Total 744 ml 400 ml 556 ml 779 ml Output Urine Total 600 ml 1525 ml 600 ml # Voids 3 # Bowel Movements 1 1 3 Result Diagram: 08/13/16 1125 08/14/16 0551 Imaging Last Impressions Modified Barium Swallow 08/14/16 0000 Signed Impressions: Service Date/Time: Sunday, August 14, 2016 09:40 - CONCLUSION: Penetration with possible trace aspiration noted with thin liquid. Martin Beaver MD Neck CT 08/13/16 0000 Signed Impressions: Service Date/Time: Saturday, August 13, 2016 12:40 - CONCLUSION: Mass in the low right oropharynx. Left apical lung mass. Franc Ramachandran MD Chest X-Ray 08/13/16 0000 Signed Impressions: Service Date/Time: Saturday, August 13, 2016 15:42 - CONCLUSION: Minimal parenchymal changes left upper lobe suspicious for an early inflammatory process. Benny Esquivel MD FACR Objective Remarks awake and alert, oriented x 3 anicteric lungs- occasional rhonchi, no wheezes regular rhythm abdomen soft, nontender extremities no edema neuro exam- non focal A/P Assessment and Plan 89 years old male Odynophagia, dysphagia , dysarthria from Extrinsic compression from Head and neck cancer Radiation Oncology- Dr, Factor-- ff hopefully radiation treatment can be initiated here to help shrink tumor D/W - Medical Oncology ff GI consulted - PEG placement today Dilaudid prn for pain Aspiration Pneumonia + lung infiltrates Underlying COPD Exacerbation on flagyl 500 mg IV.+ Levaquin IV solumedrol. duonebs qid chronic kidney insufficiency- creatinine near baseline continue IV Iron deficiency anemia- Microcytic anemia- IV Iron x 1. start po supplements History of hypertension- -- start back on his amlodipine at 2.5 mg po daily once PEG placed Dietitian consult for TF recommendations Heparin SQ for DVT prophylaxis PPI for GI prophylaxis Discharge Planning case management Trinh Prbahakar MD Aug 15, 2016 07:56
[2016-08-15 08:00] VITALS: BP 159/69; PULSE 53; RESP 15; TEMP 96.3; O2SAT 94
[2016-08-15] MEDS: RESP: ALBUTEROL 2.5 MG/IPRATROPIUM 0.5 MG NEB (SCH) NEB ×4 (08:04→19:54)
[2016-08-15] MEDS: HEPARIN SODIUM - SQ 10,000 UNITS/ML VIAL SQ SCH ×2 (08:14→21:13)
[2016-08-15] MEDS: LEVOFLOXACIN 500 MG PREMIX INJ 100 ML IV SCH (08:15)
--- NOTE | 2016-08-15 08:20 | PD.ONC.PN ---
Subjective Subjective Remarks Afebrile overnight. Patient resting in bed in nad. Had difficulty sleeping last night. Waiting to go down for EGD. Objective Data Date Time Temp Pulse Resp B/P Pulse Ox O2 Delivery O2 Flow Rate FiO2 08/15/16 04:37 96.9 58 16 149/65 94 08/15/16 00:13 97.3 60 17 166/83 94 08/14/16 20:19 98.2 58 17 137/56 94 08/14/16 12:00 97.4 57 16 152/68 96 08/15/16 08/15/16 08/15/16 07:00 15:00 23:00 Intake Total 779 ml Output Total 600 ml Balance 179 ml Result Diagram: 08/13/16 1125 08/14/16 0551 Administered Medications Medications (Trade) Dose Ordered Sig/Mallory Route PRN Reason Start Time Stop Time Status Last Admin Dose Admin Dextrose/Sodium Chloride (D5W-NS 1000 ml Inj) 1,000 ml @ 84 mls/hr [id number] IV 08/13/16 14:45 08/14/16 13:43 Pantoprazole Sodium (Protonix Inj) 40 mg Q24H IV PUSH 08/13/16 18:00 08/14/16 17:34 Heparin Sodium (Porcine) (Heparin Inj) 5,000 units Q12HR SQ 08/13/16 21:00 08/13/16 21:30 Methylprednisolone Sodium Succinate 40 mg 40 mg Q8HR IV PUSH 08/13/16 17:30 08/15/16 05:49 Metronidazole 100 ml @ 100 mls/hr Q8H IV 08/13/16 18:00 08/15/16 01:34 Levofloxacin/ Dextrose (Levaquin 500 Mg Premix Inj) 100 ml @ 100 mls/hr Q24H IV 08/14/16 09:00 08/14/16 11:53 Objective Remarks GENERAL: Elderly male, supine in bed in [facility]. hard of hearing. SKIN: Warm and dry. HEAD: Normocephalic. EYES: No injection or drainage. NECK: Supple, trachea midline. CARDIOVASCULAR: Regular rate and rhythm RESPIRATORY: Breath sounds equal bilaterally. No accessory muscle use. GASTROINTESTINAL: Abdomen soft, non-tender, nondistended. EXTREMITIES: No cyanosis NEUROLOGICAL: awake and alert, normal speech. Assessment/Plan Problem List: (1) Head and neck malignancy Status: Acute Plan: -- Hypopharyngeal squamous cell carcinoma. --PET scan showed hypermetabolic mass in the right side of hypopharynx measured 3.6 x 3.5 cm. ++no clear evidence of metastasis in the neck lymph node. --XRT simulation this week --has very poor performance status and I do not think he could tolerate concurrent chemotherapy. (2) Lung cancer Status: Acute Plan: --diagnosed 2014. --Last PET scan showed 3.4 cm mass in left upper lobe with hypermetabolic mediastinal adenopathy. --disease is progressing very slowly. --no significant pulmonary symptom. 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 --not interested in treatment of lung cancer at this point. (3) Dysphagia Status: Acute Plan: --Dysphagia and odynophagia due to neck mass. --GI following, pending PEG tube placement Assessment 89y/o male with h/o lung cancer now with newly diagnosed head and neck cancer, presented with dysphagia and weakness. history of ngz-wzbnl-azfo lung cancer diagnosed in 2014--declined treatment Hypopharyngeal squamous cell carcinoma. Hypertension. Anemia. Diabetes mellitus. Peripheral vascular disease. Hyperlipidemia, osteoarthritis, stroke. Plan 1. PEG tube placement today per GI 2. XRT simulation tomorrow around 1PM. 3. supportive care Attending Statement The exam, history, and the medical decision-making described in the above note were completed with the assistance of the mid-level provider. I reviewed and agree with the findings presented. I attest that I had a lycy-ok-lndr encounter with the patient on the same day, and personally performed and documented my assessment and findings in the medical record. Dysphagia and neck pain stable. Barium swallow showed aspiration. Await PEG tube placement. Await simulation for XRT. Alexandra Clinton Aug 15, 2016 08:20 João Castanon MD Aug 15, 2016 16:03
[2016-08-15 12:00] VITALS: BP 128/57; PULSE 59; RESP 17; TEMP 96.1; O2SAT 93
[2016-08-15 12:26] LABS: HEMATOCRIT 26.9 % (39.0-51.0); MEAN CELL VOLUME 75.6 FL (80.0-100.0); MEAN CORPUSCULAR HEMOGLOBIN 25.1 PG (27.0-34.0); MEAN CORPUSCULAR HGB CONC 33.2 % (32.0-36.0); PLATELET COUNT 217 TH/MM3 (150-450); RED BLOOD COUNT 3.56 MIL/MM3 (4.50-5.90); RED CELL DISTRIBUTION WIDTH 16.6 % (11.6-17.2); REVIEW FLAG FINAL
[2016-08-15 12:53] LABS: BICARBONATE 23.1 MEQ/L (21.0-32.0)
[2016-08-15] MEDS ORDERED: PROPOFOL 200 MG/20 ML AMP IV ONE (15:50)
[2016-08-15] MEDS ORDERED: IRON SUCROSE INJ 200 MG in SODIUM CHLORIDE 0.9% INJ 100 ML IV ONE (16:00)
--- NOTE | 2016-08-15 16:10 | GIPROC ---
[facility] [address] [facility]. [facility], [address] EGD WITH PEG PROCEDURE REPORT EXAM DATE: 08/15/2016 PATIENT NAME: Suhas Mayorga MR#: [id number] BIRTHDATE: 1925 ATTENDING: Moira Gonzalez MD ORDER #: [id number] NUCLEAR MEDICINE OFFICER: Iván Sousa and Mahendra Stern STATUS: inpatient INDICATIONS: The patient is a 89 yr old male here for an EGD with PEG due to dysphagia PROCEDURE PERFORMED: EGD with PEG placement MEDICATIONS: None and Per Anesthesia. TOPICAL ANESTHETIC: Lidocaine [place] CONSENT: The patient understands the risks and benefits of the procedure and understands that these risks include, but are not limited to: sedation, allergic reaction, infection, perforation and/or bleeding. Alternative means of evaluation and treatment include, among others: physical exam, x-rays, and/or surgical intervention. The patient elects to proceed with this endoscopic procedure. medical equipment was checked for proper function. Hand hygiene and appropriate measures for infection prevention was taken. After the risks, benefits and alternatives of the procedure were thoroughly explained, Informed consent was verified, confirmed and timeout was successfully executed by the treatment team. The patient was anesthetized with topical anesthesia and the Pentax [id number] endoscope was introduced through the mouth and advanced to the second portion of the duodenum. The instrument was slowly withdrawn as the mucosa was fully examined. The esophagus and gastroesophageal junction were completely normal in appearance. The stomach was entered and closely examined. The antrum, angularis, and lesser curvature were well visualized, including a retroflexed view of the cardia and fundus. The stomach wall was normally distensable. The scope passed easily through the pylorus into the duodenum. The duodenal bulb was normal in appearance, as was the postbulbar duodenum. The stomach was then inflated with air, and by a combination of transillumination and manual palpation, the site for the gastrostomy tube placement was selected and marked on the anterior abdominal wall. The skin of the anterior abdomen was surgically prepped and draped with sterile towels. Utilizing strict sterile technique, the selected site was then anesthetized with 1% xylocaine by injection into the skin and subcutaneous tissue. The needle/cannula assembly was then passed through the abdominal wall and through the anterior wall of the stomach, maintaining visualization with the endoscope. A snare device previously placed through the instrument channel was then opened and placed around the cannula, the needle was removed, and the insertion wire was passed through the cannula and into the stomach lumen. The snare was then loosened from the cannula, and repositioned to snare the insertion wire. The snare was then pulled up to the endoscope distal tip, and the scope was then withdrawn bringing with it the snare and insertion wire. The insertion wire was then released from the snare, and then loop-attached to the [employer] 20 Fr gastrostomy tube. Using the "pull technique", the G-tube was then pulled into place by traction on the insertion wire at the abdominal wall end. The G-tube insertion site was then cleansed once again, and the external bolster was placed over the tube to secure it to the abdominal wall. A sterile dressing was then applied, and the procedure terminated. no abnormalities The gastroscope was then slowly withdrawn and removed. ADVERSE EVENT: There were no complications. IMPRESSIONS: 1. The esophagus and gastroesophageal junction were completely normal in appearance. 2. The stomach was entered and closely examined. The antrum, angularis, and lesser curvature were well visualized, including a retroflexed view of the cardia and fundus. The stomach wall was normally distensable. The scope passed easily through the pylorus into the duodenum. 3. The duodenal bulb was normal in appearance, as was the postbulbar duodenum. 4. No abnormalities 5. Gastrostomy tube placement RECOMMENDATIONS: PEG recomendations: 1- NPO for 6 hours except for meds 2- Flush PEG tube every 6 hours with water and after each PEG feeding 3- May resume regular diet in the morning 4- May use Ensure or Boost etc. for PEG tube feeding REPEAT EXAM: Moira Gonzalez MD eSigned: Moira Gonzalez MD 08/15/2016 4:10 PM cc: PATIENT NAME: Suhas Mayorga MR#: [id number]
[2016-08-15] MEDS ORDERED: *ENALAPRILAT 1.25 MG/ML VIAL PERIprocedural Use ONLY ONE (16:40)
[2016-08-15] MEDS ORDERED: DO NOT ADM ANY ANTICOAGULANT DRUGS PRN (16:45)
[2016-08-15] MEDS ORDERED: *morphine SULFATE 8 MG/ML PERIprocedure ONLY ONE (16:45)
[2016-08-15 17:40] VITALS: BP 178/78; PULSE 53; RESP 16; TEMP 95.1; O2SAT 98
[2016-08-15] MEDS: PANTOPRAZOLE SODIUM 40 MG VIAL IV PUSH SCH (18:01)
[2016-08-15 20:30] VITALS: BP 129/64; PULSE 69; RESP 18; TEMP 96.5; O2SAT 97
[2016-08-16] VITALS (7 sets, daily range): BP systolic 152–186; BP diastolic 65–80; PULSE 51–65; RESP 16–19; TEMP 95.9–97.6; O2SAT 95–98
[2016-08-16] MEDS: DEXT 5%-NACL 0.9% 1000 ML INJ 1,000 ML IV SCH ×2 (02:20→14:15)
[2016-08-16] MEDS: metroNIDAZOLE 500 MG INJ 100 ML IV SCH ×3 (02:23→17:11)
[2016-08-16] MEDS: methylPREDNISolone SOD SUCC 40 MG/1 ML VIAL IV PUSH SCH ×3 (05:51→21:34)
[2016-08-16] MEDS: RESP: ALBUTEROL 2.5 MG/IPRATROPIUM 0.5 MG NEB (SCH) NEB ×4 (08:36→19:33)
--- NOTE | 2016-08-16 09:52 | PD.ONC.PN ---
Subjective Subjective Remarks Afebrile overnight. Patient resting in bed in nad. Tolerated PEG tube placement. Going for XRT simulation today. Objective Data Date Time Temp Pulse Resp B/P Pulse Ox O2 Delivery O2 Flow Rate FiO2 08/16/16 08:35 96 21 08/16/16 08:00 96.8 62 16 172/79 98 08/16/16 00:30 96.4 59 17 152/65 95 08/15/16 20:30 96.5 69 18 129/64 97 08/15/16 17:40 95.1 53 16 178/78 98 08/15/16 17:00 97.4 53 16 160/70 100 Nasal Cannula 2 08/15/16 16:45 51 16 163/71 100 Nasal Cannula 2 08/15/16 16:30 63 15 190/82 97 Nasal Cannula 2 08/15/16 16:15 97.6 48 14 170/75 100 Nasal Cannula 2 08/15/16 12:00 96.1 59 17 128/57 93 08/16/16 08/16/16 08/16/16 07:00 15:00 23:00 Intake Total 741 ml Output Total 800 ml Balance -59 ml Result Diagram: 08/15/16 1207 08/15/16 1207 Laboratory Results Laboratory Tests Test 08/15/16 12:07 White Blood Count 10.0 TH/MM3 Red Blood Count 3.56 MIL/MM3 Hemoglobin 8.9 GM/DL Hematocrit 26.9 % Mean Corpuscular Volume 75.6 FL Mean Corpuscular Hemoglobin 25.1 PG Mean Corpuscular Hemoglobin 33.2 % Concent Red Cell Distribution Width 16.6 % Platelet Count 217 TH/MM3 Mean Platelet Volume 9.4 FL Sodium Level 143 MEQ/L Potassium Level 4.0 MEQ/L Chloride Level 112 MEQ/L Carbon Dioxide Level 23.1 MEQ/L Anion Gap 8 MEQ/L Blood Urea Nitrogen 27 MG/DL Creatinine 1.47 MG/DL Estimat Glomerular Filtration 55 ML/MIN Rate Random Glucose 133 MG/DL Calcium Level 8.8 MG/DL Administered Medications Medications (Trade) Dose Ordered Sig/Mallory Route PRN Reason Start Time Stop Time Status Last Admin Dose Admin Dextrose/Sodium Chloride (D5W-NS 1000 ml Inj) 1,000 ml @ 84 mls/hr [id number] IV 08/13/16 14:45 08/14/16 13:43 Pantoprazole Sodium (Protonix Inj) 40 mg Q24H IV PUSH 08/13/16 18:00 08/15/16 18:01 Heparin Sodium (Porcine) (Heparin Inj) 5,000 units Q12HR SQ 08/13/16 21:00 08/15/16 21:13 Methylprednisolone Sodium Succinate 40 mg 40 mg Q8HR IV PUSH 08/13/16 17:30 08/16/16 05:51 Metronidazole 100 ml @ 100 mls/hr Q8H IV 08/13/16 18:00 08/16/16 02:23 Levofloxacin/ Dextrose (Levaquin 500 Mg Premix Inj) 100 ml @ 100 mls/hr Q24H IV 08/14/16 09:00 08/15/16 08:15 Objective Remarks GENERAL: Elderly male, resting in bed in nad. SKIN: Warm and dry. HEAD: Normocephalic. EYES: No injection or drainage. NECK: Supple, trachea midline. CARDIOVASCULAR: Regular rate and rhythm RESPIRATORY: Breath sounds equal bilaterally. No accessory muscle use. GASTROINTESTINAL: Abdomen soft, non-tender, nondistended. PEG tube clamped EXTREMITIES: No cyanosis NEUROLOGICAL: awake and alert, normal speech. moving all extremities. Assessment/Plan Problem List: (1) Head and neck malignancy Status: Acute Plan: -- Hypopharyngeal squamous cell carcinoma. --PET scan showed hypermetabolic mass in the right side of hypopharynx measured 3.6 x 3.5 cm. ++no clear evidence of metastasis in the neck lymph node. --XRT simulation 08/16 --has very poor performance status and I do not think he could tolerate concurrent chemotherapy. (2) Lung cancer Status: Acute Plan: --diagnosed 2014. --Last PET scan showed 3.4 cm mass in left upper lobe with hypermetabolic mediastinal adenopathy. --disease is progressing very slowly. --no significant pulmonary symptom. 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 --not interested in treatment of lung cancer at this point. (3) Dysphagia Status: Acute Plan: --Dysphagia and odynophagia due to neck mass. --GI following, s/p PEG tube placement. start tube feeds per GI Assessment 89y/o male with h/o lung cancer now with newly diagnosed head and neck cancer, presented with dysphagia and weakness. history of bzl-ghfwo-ylhf lung cancer diagnosed in 2014--declined treatment Hypopharyngeal squamous cell carcinoma. Hypertension. Anemia. Diabetes mellitus. Peripheral vascular disease. Hyperlipidemia, osteoarthritis, stroke. Plan 1. start TF per GI 2. XRT simulation today @1PM. 3. supportive care Attending Statement The exam, history, and the medical decision-making described in the above note were completed with the assistance of the mid-level provider. I reviewed and agree with the findings presented. I attest that I had a [id number] encounter with the patient on the same day, and personally performed and documented my assessment and findings in the medical record.Neck pain better controlled. S/p PEG tube placement. XRT simulation planned today. Once tolerating tube feeding, can be d/c and f/u with Rad Onc. Alexandra Clinton Aug 16, 2016 09:52 João Castanon MD Aug 16, 2016 15:43
--- NOTE | 2016-08-16 10:24 | HHI.PR ---
Subjective Remarks up in chair difficulty swallowing tolerated PEG placement going for radiation simulation today Objective Vitals Vital Signs Date Time Temp Pulse Resp B/P Pulse Ox O2 Delivery O2 Flow Rate FiO2 08/16/16 08:35 96 21 08/16/16 08:00 96.8 62 16 172/79 98 08/16/16 00:30 96.4 59 17 152/65 95 08/15/16 20:30 96.5 69 18 129/64 97 08/15/16 17:40 95.1 53 16 178/78 98 08/15/16 17:00 97.4 53 16 160/70 100 Nasal Cannula 2 08/15/16 16:45 51 16 163/71 100 Nasal Cannula 2 08/15/16 16:30 63 15 190/82 97 Nasal Cannula 2 08/15/16 16:15 97.6 48 14 170/75 100 Nasal Cannula 2 08/15/16 12:00 96.1 59 17 128/57 93 I/O 08/15/16 08/15/16 08/15/16 08/16/16 08/16/16 08/16/16 07:00 15:00 23:00 07:00 15:00 23:00 Intake Total 779 ml 405 ml 659 ml 741 ml Output Total 600 ml 750 ml 1000 ml 800 ml Balance 179 ml -345 ml -341 ml -59 ml Intake Oral 0 ml IV Total 779 ml 405 ml 159 ml 741 ml Other 500 ml Output Urine Total 600 ml 750 ml 1000 ml 800 ml Estimated Blood Loss 0 ml # Bowel Movements 0 Result Diagram: 08/15/16 1207 08/15/16 1207 Imaging Last Impressions Modified Barium Swallow 08/14/16 0000 Signed Impressions: Service Date/Time: Sunday, August 14, 2016 09:40 - CONCLUSION: Penetration with possible trace aspiration noted with thin liquid. Martin Beaver MD Neck CT 08/13/16 0000 Signed Impressions: Service Date/Time: Saturday, August 13, 2016 12:40 - CONCLUSION: Mass in the low right oropharynx. Left apical lung mass. Franc Ramachandran MD Chest X-Ray 08/13/16 0000 Signed Impressions: Service Date/Time: Saturday, August 13, 2016 15:42 - CONCLUSION: Minimal parenchymal changes left upper lobe suspicious for an early inflammatory process. Benny Esquivel MD FACR Objective Remarks awake and alert, oriented x 3 anicteric lungs- no rales, rhonchis or wheezes regular rhythm abdomen soft, nontender, PEG site- no sign of erythema extremities no edema neuro exam- non focal Procedures 08/15- PEG placement A/P Assessment and Plan 89 years old male Odynophagia, dysphagia , dysarthria from Extrinsic compression from Head and neck cancer Radiation Oncology- , Factor-- ff hopefully radiation treatment can be initiated here to help shrink tumor - for simulation today Dilaudid prn for pain Aspiration Pneumonia + lung infiltrates Underlying COPD Exacerbation on flagyl 500 mg IV.+ Levaquin IV solumedrol. - decrease dose duonebs qid chronic kidney insufficiency- creatinine near baseline continue IV Iron deficiency anemia- Microcytic anemia- IV Iron x 1 08/15 . start po supplements Ferrous sulfate 325 mg /peg bid History of hypertension- -- start back on his amlodipine at 2.5 mg po daily once PEG placed Appreciate- Dietitian TF recommendations -will start today and increase as tolerated Heparin SQ for DVT prophylaxis PPI for GI prophylaxis Discharge Planning case management Trinh Prabhakar MD Aug 16, 2016 10:24
[2016-08-16] MEDS: HEPARIN SODIUM - SQ 10,000 UNITS/ML VIAL SQ SCH ×2 (10:34→21:34)
[2016-08-16] MEDS: LEVOFLOXACIN 500 MG PREMIX INJ 100 ML IV SCH (10:35)
[2016-08-16] MEDS ORDERED: FERROUS SULFATE 325 MG (65 MG ELEMENTAL IRON) TAB SCH (10:45)
[2016-08-16] MEDS: PANTOPRAZOLE SODIUM 40 MG VIAL IV PUSH SCH (17:11)
[2016-08-16] MEDS: FERROUS SULFATE 300 MG /5ML UDC PEG SCH ×2 (17:11→21:34)
[2016-08-16] MEDS ORDERED: amLODIPine BESYLATE 5 MG TAB PO ONE (20:45)
[2016-08-17] VITALS (8 sets, daily range): BP systolic 136–177; BP diastolic 56–87; PULSE 64–73; RESP 18–20; TEMP 96.4–97.8; O2SAT 8–100
[2016-08-17] MEDS: DEXT 5%-NACL 0.9% 1000 ML INJ 1,000 ML IV SCH ×2 (01:41→17:51)
[2016-08-17] MEDS: metroNIDAZOLE 500 MG INJ 100 ML IV SCH ×3 (01:41→17:58)
[2016-08-17] MEDS: methylPREDNISolone SOD SUCC 40 MG/1 ML VIAL IV PUSH SCH ×3 (05:54→20:53)
[2016-08-17] MEDS: RESP: ALBUTEROL 2.5 MG/IPRATROPIUM 0.5 MG NEB (SCH) NEB ×4 (07:37→19:05)
[2016-08-17] MEDS ORDERED: amLODIPine BESYLATE 5 MG TAB PO SCH (09:00)
--- NOTE | 2016-08-17 09:31 | HHI.PR ---
Subjective Remarks tolerating tube feedings at 60 cc/hr minimal right submandibular pain Objective Vitals Vital Signs Date Time Temp Pulse Resp B/P Pulse Ox O2 Delivery O2 Flow Rate FiO2 08/17/16 08:00 96.7 67 20 157/56 100 08/17/16 07:38 97 08/17/16 04:51 96.4 70 18 150/67 95 08/17/16 00:28 96.9 71 20 136/60 97 08/16/16 20:00 97.6 65 17 180/80 97 08/16/16 19:35 96 21 08/16/16 16:00 96.3 51 19 186/77 96 08/16/16 12:00 95.9 51 17 156/68 98 I/O 08/16/16 08/16/16 08/16/16 08/17/16 08/17/16 08/17/16 07:00 15:00 23:00 07:00 15:00 23:00 Intake Total 741 ml 0 ml 1197 ml 1226 ml Output Total 800 ml 475 ml 800 ml 800 ml Balance -59 ml -475 ml 397 ml 426 ml Intake Oral 0 ml IV Total 741 ml 649 ml 637 ml Tube Feeding 428 ml 469 ml Other 120 ml 120 ml Output Urine Total 800 ml 475 ml 800 ml 800 ml # Bowel Movements 0 Result Diagram: 08/15/16 1207 08/15/16 1207 Imaging Last Impressions Modified Barium Swallow 08/14/16 0000 Signed Impressions: Service Date/Time: Sunday, August 14, 2016 09:40 - CONCLUSION: Penetration with possible trace aspiration noted with thin liquid. Martin Beaver MD Neck CT 08/13/16 0000 Signed Impressions: Service Date/Time: Saturday, August 13, 2016 12:40 - CONCLUSION: Mass in the low right oropharynx. Left apical lung mass. Franc Ramachandran MD Chest X-Ray 08/13/16 0000 Signed Impressions: Service Date/Time: Saturday, August 13, 2016 15:42 - CONCLUSION: Minimal parenchymal changes left upper lobe suspicious for an early inflammatory process. Benny Esquivel MD FACR Objective Remarks awake and alert, oriented x 3 anicteric lungs- no rales, rhonchis or wheezes regular rhythm abdomen soft, nontender, PEG site- no sign of erythema extremities no edema neuro exam- non focal Procedures 08/15- PEG placement A/P Assessment and Plan 89 years old male Odynophagia, dysphagia , dysarthria from Extrinsic compression from Head and neck cancer Radiation Oncology- , Factor-- ff hopefully radiation treatment can be initiated here to help shrink tumor - Dilaudid prn for pain Aspiration Pneumonia + lung infiltrates Underlying COPD Exacerbation on flagyl 500 mg IV.+ Levaquin IV solumedrol. - duonebs qid chronic kidney insufficiency- creatinine near baseline DC iVF with TF started Iron deficiency anemia- Microcytic anemia- IV Iron x 1 08/15 . start po supplements Ferrous sulfate 325 mg /peg bid History of hypertension- -- amlodipine 5 mg daily PRN CLONIDINE Appreciate- Dietitian TF recommendations Heparin SQ for DVT prophylaxis PPI for GI prophylaxis Discharge Planning case management Trinh Prabhakar MD Aug 17, 2016 09:31
--- NOTE | 2016-08-17 09:43 | PD.ONC.PN ---
Subjective Subjective Remarks Afebrile overnight. Patient resting comfortably. Tolerating tube feeds. Tolerated XRT simulation. Objective Data Date Time Temp Pulse Resp B/P Pulse Ox O2 Delivery O2 Flow Rate FiO2 08/17/16 08:00 96.7 67 20 157/56 100 08/17/16 07:38 97 08/17/16 04:51 96.4 70 18 150/67 95 08/17/16 00:28 96.9 71 20 136/60 97 08/16/16 20:00 97.6 65 17 180/80 97 08/16/16 19:35 96 21 08/16/16 16:00 96.3 51 19 186/77 96 08/16/16 12:00 95.9 51 17 156/68 98 08/17/16 08/17/16 08/17/16 07:00 15:00 23:00 Intake Total 1226 ml Output Total 800 ml Balance 426 ml Result Diagram: 08/15/16 1207 08/15/16 1207 Administered Medications Medications (Trade) Dose Ordered Sig/Mallory Route PRN Reason Start Time Stop Time Status Last Admin Dose Admin Dextrose/Sodium Chloride (D5W-NS 1000 ml Inj) 1,000 ml @ 84 mls/hr [id number] IV 08/13/16 14:45 08/17/16 01:41 Pantoprazole Sodium (Protonix Inj) 40 mg Q24H IV PUSH 08/13/16 18:00 08/16/16 17:11 Heparin Sodium (Porcine) (Heparin Inj) 5,000 units Q12HR SQ 08/13/16 21:00 08/16/16 21:34 Methylprednisolone Sodium Succinate 40 mg 40 mg Q8HR IV PUSH 08/13/16 17:30 08/17/16 05:54 Metronidazole 100 ml @ 100 mls/hr Q8H IV 08/13/16 18:00 08/17/16 01:41 Levofloxacin/ Dextrose (Levaquin 500 Mg Premix Inj) 100 ml @ 100 mls/hr Q24H IV 08/14/16 09:00 08/16/16 10:35 Ferrous Sulfate (Ferrous Sulfate Liq) 300 mg BID PEG 08/16/16 10:43 08/16/16 21:34 Objective Remarks GENERAL: Elderly male, resting in bed in nad. SKIN: Warm and dry. HEAD: Normocephalic. EYES: No injection or drainage. NECK: Supple, trachea midline. CARDIOVASCULAR: Regular rate and rhythm RESPIRATORY: anterior alvarez clear GASTROINTESTINAL: Abdomen soft, non-tender, nondistended. receiving TF via pump EXTREMITIES: No cyanosis NEUROLOGICAL: awake and alert, normal speech. moving all extremities. Assessment/Plan Problem List: (1) Head and neck malignancy Status: Acute Plan: -- Hypopharyngeal squamous cell carcinoma. --PET scan showed hypermetabolic mass in the right side of hypopharynx measured 3.6 x 3.5 cm. ++no clear evidence of metastasis in the neck lymph node. --XRT simulation 08/16 --has very poor performance status and I do not think he could tolerate concurrent chemotherapy. (2) Lung cancer Status: Acute Plan: --diagnosed 2014. --Last PET scan showed 3.4 cm mass in left upper lobe with hypermetabolic mediastinal adenopathy. --disease is progressing very slowly. --no significant pulmonary symptom. 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 --not interested in treatment of lung cancer at this point. (3) Dysphagia Status: Acute Plan: --Dysphagia and odynophagia due to neck mass. --GI following, s/p PEG tube placement. on Jevity 1.5 TF Assessment 89y/o male with h/o lung cancer now with newly diagnosed head and neck cancer, presented with dysphagia and weakness. history of sof-dgyru-vjys lung cancer diagnosed in 2014--declined treatment Hypopharyngeal squamous cell carcinoma. Hypertension. Anemia. Diabetes mellitus. Peripheral vascular disease. Hyperlipidemia, osteoarthritis, stroke. Plan 1. continue tube feeds 2. await start of XRT 3. supportive care Attending Statement The exam, history, and the medical decision-making described in the above note were completed with the assistance of the mid-level provider. I reviewed and agree with the findings presented. I attest that I had a [id number] encounter with the patient on the same day, and personally performed and documented my assessment and findings in the medical record. Tolerating tube feeding. Neck pain controlled. Had XRT simulation and await XRT. Alexandra Clinton Aug 17, 2016 09:43 João Castanon MD Aug 17, 2016 16:46
[2016-08-17] MEDS: HYDROmorphone HCL PF 1 MG/ML VIAL IV PUSH PRN ×2 (09:50→21:05)
[2016-08-17] MEDS: LEVOFLOXACIN 500 MG PREMIX INJ 100 ML IV SCH (09:51)
[2016-08-17] MEDS: FERROUS SULFATE 300 MG /5ML UDC PEG SCH ×2 (09:51→20:53)
[2016-08-17] MEDS: HEPARIN SODIUM - SQ 10,000 UNITS/ML VIAL SQ SCH ×2 (09:51→20:53)
[2016-08-17] MEDS: amLODIPine BESYLATE 5 MG TAB PEG SCH (10:00)
[2016-08-17] MEDS: PANTOPRAZOLE SODIUM 40 MG VIAL IV PUSH SCH (17:51)
[2016-08-18] VITALS (8 sets, daily range): BP systolic 140–166; BP diastolic 68–94; PULSE 55–78; RESP 19–20; TEMP 96.1–98.7; O2SAT 96–99
[2016-08-18] MEDS: DEXT 5%-NACL 0.9% 1000 ML INJ 1,000 ML IV SCH (02:19)
[2016-08-18] MEDS: metroNIDAZOLE 500 MG INJ 100 ML IV SCH ×3 (02:19→16:22)
[2016-08-18] MEDS: methylPREDNISolone SOD SUCC 40 MG/1 ML VIAL IV PUSH SCH ×2 (04:34→21:10)
[2016-08-18] MEDS: HYDROmorphone HCL PF 1 MG/ML VIAL IV PUSH PRN ×3 (04:37→17:45)
[2016-08-18] MEDS: RESP: ALBUTEROL 2.5 MG/IPRATROPIUM 0.5 MG NEB (SCH) NEB ×2 (07:15→11:45)
[2016-08-18] MEDS: amLODIPine BESYLATE 5 MG TAB PEG SCH (09:54)
[2016-08-18] MEDS: FERROUS SULFATE 300 MG /5ML UDC PEG SCH ×2 (09:54→21:10)
[2016-08-18] MEDS: LEVOFLOXACIN 500 MG PREMIX INJ 100 ML IV SCH (09:54)
[2016-08-18] MEDS: HEPARIN SODIUM - SQ 10,000 UNITS/ML VIAL SQ SCH ×2 (09:54→21:10)
[2016-08-18] MEDS ORDERED: amLODIPine BESYLATE 5 MG TAB PEG SCH (10:00)
--- NOTE | 2016-08-18 10:21 | HHI.PR ---
Subjective Remarks appears comfortable minimal pain throat area tolerating tube feedings Objective Vitals Vital Signs Date Time Temp Pulse Resp B/P Pulse Ox O2 Delivery O2 Flow Rate FiO2 08/18/16 08:00 96.9 68 19 142/69 99 08/18/16 07:16 96 21 08/18/16 00:00 96.1 75 20 154/68 96 08/17/16 20:00 97.8 73 20 177/87 96 08/17/16 15:00 96.8 68 20 147/66 99 08/17/16 12:00 96.8 64 20 148/69 100 08/17/16 11:05 8 I/O 08/17/16 08/17/16 08/17/16 08/18/16 08/18/16 08/18/16 07:00 15:00 23:00 07:00 15:00 23:00 Intake Total 1226 ml 3272 ml 1102 ml 0 ml Output Total 800 ml 850 ml 400 ml 600 ml Balance 426 ml -850 ml 2872 ml 502 ml 0 ml Intake Oral 0 ml 0 ml 0 ml IV Total 637 ml 1150 ml 653 ml Tube Feeding 469 ml 827 ml 449 ml TPN/PPN 1066 ml Lipid 129 ml Tube Irrigant 100 ml Other 120 ml Output Urine Total 800 ml 850 ml 400 ml 600 ml # Voids 7 # Bowel Movements 0 0 Result Diagram: 08/15/16 1207 08/15/16 1207 Objective Remarks awake and alert, oriented x 3 anicteric lungs- no rales, occasional rhonchi regular rhythm abdomen soft, nontender, PEG site- no sign of erythema extremities no edema neuro exam- non focal Procedures 08/15- PEG placement A/P Assessment and Plan 89 years old male Odynophagia, dysphagia , dysarthria from Extrinsic compression from Head and neck cancer Radiation Oncology- , Factor-- ff hopefully radiation treatment can be initiated here to help shrink tumor - Dilaudid prn for pain Aspiration Pneumonia + lung infiltrates Underlying COPD Exacerbation on flagyl 500 mg IV.+ Levaquin IV solumedrol. - decrease to q 12 duonebs qid chronic kidney insufficiency- creatinine near baseline Iron deficiency anemia- Microcytic anemia- I po supplements Ferrous sulfate 325 mg /peg bid History of hypertension- -- amlodipine 5 mg daily prn clonidine Appreciate- Dietitian TF recommendations Heparin SQ for DVT prophylaxis PPI for GI prophylaxis Increase activity Discharge Planning case management Trinh Prabhakar MD Aug 18, 2016 10:21
--- NOTE | 2016-08-18 12:54 | PD.ONC.PN ---
Subjective Subjective Remarks Feeling stronger. No abdominal pain. Neck pain controlled. Objective Data Date Time Temp Pulse Resp B/P Pulse Ox O2 Delivery O2 Flow Rate FiO2 08/18/16 12:00 97.8 55 19 156/77 99 08/18/16 08:00 96.9 68 19 142/69 99 08/18/16 07:16 96 21 08/18/16 00:00 96.1 75 20 154/68 96 08/17/16 20:00 97.8 73 20 177/87 96 08/17/16 15:00 96.8 68 20 147/66 99 08/18/16 08/18/16 08/18/16 07:00 15:00 23:00 Intake Total 1102 ml 0 ml Output Total 600 ml 15.0 ml Balance 502 ml -15.0 ml Result Diagram: 08/15/16 1207 08/15/16 1207 Administered Medications Medications (Trade) Dose Ordered Sig/Mallory Route PRN Reason Start Time Stop Time Status Last Admin Dose Admin Heparin Sodium (Porcine) 5000 units 5,000 units Q12HR SQ 08/13/16 21:00 08/18/16 09:54 Metronidazole 100 ml @ 100 mls/hr Q8H IV 08/13/16 18:00 08/18/16 09:54 Levofloxacin/ Dextrose (Levaquin 500 Mg Premix Inj) 100 ml @ 100 mls/hr Q24H IV 08/14/16 09:00 08/18/16 09:54 Hydromorphone HCl (Dilaudid Pf Inj) 0.2 mg Q4H PRN IV PUSH THROAT DISCOMFORT 08/15/16 08:15 08/18/16 10:20 Ferrous Sulfate (Ferrous Sulfate Liq) 300 mg BID PEG 08/16/16 10:43 08/18/16 09:54 Amlodipine Besylate (Norvasc) 5 mg DAILY PEG 08/17/16 10:00 08/18/16 09:54 Objective Remarks GENERAL: Well-nourished, well-developed patient. SKIN: Warm and dry. HEAD: Normocephalic. EYES: No scleral icterus. No injection or drainage. NECK: Supple, trachea midline. No JVD or lymphadenopathy. Tender right neck LYMPHATIC: No adenopathy. CARDIOVASCULAR: Regular rate and rhythm without murmurs. RESPIRATORY: Breath sounds equal bilaterally. No accessory muscle use. GASTROINTESTINAL: Abdomen soft, non-tender, nondistended. PEG tube noted EXTREMITIES: No cyanosis, or edema. MUSCULOSKELETAL: Adequate muscle tone. NEUROLOGICAL: No obvious focal deficit. Awake, alert, and oriented x3. PSYCHIATRIC: Appropriate mood and affect; insight and judgment normal. Assessment/Plan Problem List: (1) Head and neck malignancy Status: Acute Plan: -- Hypopharyngeal squamous cell carcinoma. --PET scan showed hypermetabolic mass in the right side of hypopharynx measured 3.6 x 3.5 cm. ++no clear evidence of metastasis in the neck lymph node. --XRT simulation 08/16 --has very poor performance status and I do not think he could tolerate concurrent chemotherapy. (2) Lung cancer Status: Acute Plan: --diagnosed 2014. --Last PET scan showed 3.4 cm mass in left upper lobe with hypermetabolic mediastinal adenopathy. --disease is progressing very slowly. --no significant pulmonary symptom. 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 --not interested in treatment of lung cancer at this point. (3) Dysphagia Status: Acute Plan: --Dysphagia and odynophagia due to neck mass. --GI following, s/p PEG tube placement. on Jevity 1.5 TF, tolerating well. Assessment 89y/o male with h/o lung cancer now with newly diagnosed head and neck cancer, presented with dysphagia and weakness. history of kzn-vfbnd-eyle lung cancer diagnosed in 2014--declined treatment Hypopharyngeal squamous cell carcinoma. Hypertension. Anemia. Diabetes mellitus. Peripheral vascular disease. Hyperlipidemia, osteoarthritis, stroke. Plan 1. continue tube feeds 2. await start of XRT 3. supportive care 4. Can be d/c when stable. João Castanon MD Aug 18, 2016 12:54
--- NOTE | 2016-08-18 22:48 | RF ---
cc: TEODORO GRAY BOON Y. MD GAFFKA, ANN A. F o l l o w u p R e p o r t DATE OF SERVICE: 08/16/16 AGE: 89 SEX: M Mr. Mayorga is an 89-year-old male. He has a history of a oral pharyngeal squamous cell cancer. Pathology obtained in the past of the right pyriform sinus demonstrated invasive mildly diffuse squamous cell cancer. Oral pharyngeal/hypopharyngeal cancer. We discussed palliative radiation therapy. We discussed definitive radiation therapy. He is not a candidate for chemotherapy or radiosensitizing chemotherapy on discussion with Dr. Castanon at this time. Radiation alone seems like a reasonable approach. Recent chest x-ray demonstrates minimal parenchymal changes left upper lobe suspicious for early inflammatory process. CT soft tissue neck 08/13/2016 demonstrates the area in the low right oropharynx and left apical mass. On CT soft tissue neck we would do a treatment plan CT scan. Agree on proceeding with treatment apical mass noted. Primary disease noted in the hypopharynx. Does report pain with swallowing, difficulty with swallowing. We discussed potential short-term/long-term toxicities of radiotherapy. He is agreeing to proceeding with treatment. CT simulation scheduled for today. PLAN: Palliative/definitive radiation therapy potentially. NOTE: He choose to enroll in hospice. Teodoro Gray MD Radiation Oncologist TIFFANIE/ /2:13 PM /10:45 PM FIORELLA
[2016-08-19] VITALS (7 sets, daily range): BP systolic 120–190; BP diastolic 61–80; PULSE 66–84; RESP 17–20; TEMP 96.7–98.9; O2SAT 92–99
[2016-08-19] MEDS: metroNIDAZOLE 500 MG INJ 100 ML IV SCH ×3 (00:52→17:40)
[2016-08-19] MEDS: SODIUM CHLORIDE 0.9% FLUSH 10 ML FLUSH IV FLUSH PRN (00:53)
--- NOTE | 2016-08-19 10:37 | HHI.PR ---
Subjective Remarks No acute events overnight. Afebrile, vital signs stable. Patient expresses that he is in a significant amount of pain this morning. States his right jaw and face, throat and chest all hurt. His chest pain is significantly worse when he swallows. Objective Vitals Vital Signs Date Time Temp Pulse Resp B/P Pulse Ox O2 Delivery O2 Flow Rate FiO2 08/19/16 08:00 96.9 77 19 175/80 97 08/19/16 04:00 97.9 70 20 120/61 99 08/19/16 00:00 97.2 84 20 175/80 97 08/18/16 20:00 96.9 56 20 140/94 98 08/18/16 16:00 98.7 78 19 166/70 99 08/18/16 15:13 62 97 08/18/16 12:00 97.8 55 19 156/77 99 I/O 08/18/16 08/18/16 08/18/16 08/19/16 08/19/16 08/19/16 07:00 15:00 23:00 07:00 15:00 23:00 Intake Total 1102 ml 1272 ml 530 ml 452 ml 0 ml Output Total 600 ml 515.0 ml 200 ml 500 ml Balance 502 ml 757.0 ml 330 ml -48 ml 0 ml Intake Oral 0 ml 0 ml 0 ml 0 ml 0 ml IV Total 653 ml 813 ml Tube Feeding 449 ml 459 ml 430 ml 452 ml Tube Irrigant 100 ml Output Urine Total 600 ml 500 ml 200 ml 500 ml Tube Feeding Residual Discard 15.0 ml # Bowel Movements 0 0 0 0 Result Diagram: 08/15/16 1207 08/15/16 1207 Objective Remarks awake and alert, oriented x 3 anicteric lungs- no rales, occasional rhonchi regular rhythm abdomen soft, nontender, PEG site- no sign of erythema extremities no edema neuro exam- non focal 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 Status: Acute (2) Head and neck malignancy ICD Code: C76.0 Status: Acute Assessment and Plan 89 years old male Odynophagia, dysphagia , dysarthria from Extrinsic compression from Head and neck cancer Radiation Oncology- Dr, Factor-- ff. Patient would like to proceed with radiation Dilaudid prn for pain Aspiration Pneumonia + lung infiltrates Underlying COPD Exacerbation on flagyl 500 mg IV.+ Levaquin IV solumedrol every 12 hours duonebs qid chronic kidney insufficiency- creatinine near baseline Iron deficiency anemia- Microcytic anemia- I po supplements Ferrous sulfate 325 mg /peg bid History of hypertension- -- amlodipine 5 mg daily prn clonidine Appreciate- Dietitian TF recommendations Heparin SQ for DVT prophylaxis PPI for GI prophylaxis Increase activity Laurie Chacon MD R3 Aug 19, 2016 10:36
[2016-08-19] MEDS: HYDROmorphone HCL PF 1 MG/ML VIAL IV PUSH PRN (10:42)
[2016-08-19] MEDS: LEVOFLOXACIN 500 MG PREMIX INJ 100 ML IV SCH (10:49)
[2016-08-19] MEDS: methylPREDNISolone SOD SUCC 40 MG/1 ML VIAL IV PUSH SCH ×2 (10:52→20:54)
[2016-08-19] MEDS: FERROUS SULFATE 300 MG /5ML UDC PEG SCH ×2 (10:53→20:55)
[2016-08-19] MEDS: HEPARIN SODIUM - SQ 10,000 UNITS/ML VIAL SQ SCH ×2 (10:54→20:55)
[2016-08-19] MEDS: PANTOPRAZOLE SOD 40 MG DELAYED RELEASE TAB PO SCH (10:54)
[2016-08-19] MEDS: amLODIPine BESYLATE 5 MG TAB PEG SCH (10:54)
[2016-08-19] MEDS: RESP: ALBUTEROL 2.5 MG/IPRATROPIUM 0.5 MG NEB (SCH) NEB ×3 (12:30→19:26)
[2016-08-19] MEDS ORDERED: ENALAPRILAT 1.25 MG/ML VIAL IV PUSH ONE (20:45)
[2016-08-20] VITALS (10 sets, daily range): BP systolic 145–192; BP diastolic 74–90; PULSE 72–101; RESP 19–21; TEMP 95.7–97.6; O2SAT 99–100
[2016-08-20] MEDS: metroNIDAZOLE 500 MG INJ 100 ML IV SCH ×3 (02:11→17:38)
[2016-08-20] MEDS ORDERED: ENALAPRILAT 2.5 MG/2 ML VIAL IV PUSH ONE (06:45)
[2016-08-20] MEDS: RESP: ALBUTEROL 2.5 MG/IPRATROPIUM 0.5 MG NEB (SCH) NEB ×4 (07:36→20:25)
[2016-08-20] MEDS: SODIUM CHLORIDE 0.9% FLUSH 10 ML FLUSH IV FLUSH PRN (09:16)
[2016-08-20] MEDS: LEVOFLOXACIN 500 MG PREMIX INJ 100 ML IV SCH (09:16)
[2016-08-20] MEDS: methylPREDNISolone SOD SUCC 40 MG/1 ML VIAL IV PUSH SCH ×2 (09:16→21:09)
[2016-08-20] MEDS: amLODIPine BESYLATE 5 MG TAB PEG SCH (09:17)
[2016-08-20] MEDS: FERROUS SULFATE 300 MG /5ML UDC PEG SCH ×2 (09:17→21:10)
[2016-08-20] MEDS: PANTOPRAZOLE SOD 40 MG DELAYED RELEASE TAB PO SCH (09:17)
[2016-08-20] MEDS: HEPARIN SODIUM - SQ 10,000 UNITS/ML VIAL SQ SCH ×2 (09:17→21:10)
--- NOTE | 2016-08-20 11:20 | HHI.PR ---
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 States he would like to go home with hospice. Objective Vitals Vital Signs Date Time Temp Pulse Resp B/P Pulse Ox O2 Delivery O2 Flow Rate FiO2 08/20/16 08:00 96.0 76 19 162/77 100 08/20/16 07:37 100 Nasal Cannula 2.00 08/20/16 06:49 72 08/20/16 06:30 72 145/75 08/20/16 04:00 96.7 76 19 174/74 99 08/20/16 00:00 96.4 80 19 162/76 99 08/19/16 20:00 96.7 84 19 181/77 99 08/19/16 19:28 92 Nasal Cannula 2.00 08/19/16 16:00 98.9 71 17 172/70 97 08/19/16 11:55 97.3 66 18 190/70 99 I/O 08/19/16 08/19/16 08/19/16 08/20/16 08/20/16 08/20/16 07:00 15:00 23:00 07:00 15:00 23:00 Intake Total 452 ml 0 ml 2067 ml 526 ml Output Total 500 ml 900 ml 300 ml 300 ml Balance -48 ml -900 ml 1767 ml 226 ml Intake Oral 0 ml 0 ml 120 ml 0 ml IV Total 1274 ml 100 ml Tube Feeding 452 ml 673 ml 426 ml Output Urine Total 500 ml 900 ml 300 ml 300 ml # Bowel Movements 0 0 1 Imaging Last Impressions Modified Barium Swallow 08/14/16 0000 Signed Impressions: Service Date/Time: Sunday, August 14, 2016 09:40 - CONCLUSION: Penetration with possible trace aspiration noted with thin liquid. Martin Beaver MD Neck CT 08/13/16 0000 Signed Impressions: Service Date/Time: Saturday, August 13, 2016 12:40 - CONCLUSION: Mass in the low right oropharynx. Left apical lung mass. Franc Ramachandran MD Chest X-Ray 08/13/16 0000 Signed Impressions: Service Date/Time: Saturday, August 13, 2016 15:42 - CONCLUSION: Minimal parenchymal changes left upper lobe suspicious for an early inflammatory process. Benny Esquivel MD FACR Objective Remarks GENERAL: AND SKIN: Warm and dry. HEAD: Normocephalic. EYES: No scleral icterus. No injection or drainage. NECK: Supple, trachea midline. No JVD or lymphadenopathy. CARDIOVASCULAR: Regular rate and rhythm without murmurs, gallops, or rubs. RESPIRATORY: Breath sounds equal bilaterally. No accessory muscle use. GASTROINTESTINAL: Abdomen soft, non-tender, nondistended. PEG tube in place MUSCULOSKELETAL: No cyanosis, or edema. BACK: Nontender without obvious deformity. No CVA tenderness. 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 (2) Head and neck malignancy ICD Code: C76.0 Status: Chronic (3) Odynophagia ICD Code: R13.10 Status: Acute (4) Dysphagia ICD Code: R13.10 Status: Acute (5) Aspiration pneumonia ICD Code: J69.0 Status: Acute Assessment and Plan 89 year-old man with History of lung cancer Head and neck metastases Appreciate input from oncology, radiation Patient is not a candidate for chemotherapy or radiosensitizing chemotherapy XRT Will consult hospice 08/20/16 Odynophagia, dysphagia , dysarthria from Extrinsic compression from Head and neck cancer Status post PEG tube placement Continue with tube feed Appreciate input from GI Dilaudid prn for pain Aspiration Pneumonia + lung infiltrates Underlying COPD Exacerbation on Flagyl 500 mg IV.+ Levaquin IV Solu Medrol every 12 hours Duo nebs qid chronic kidney insufficiency- Renal indices improving Iron deficiency anemia- Microcytic anemia- Continue supplements Ferrous sulfate 325 mg /peg bid History of hypertension- -- amlodipine 5 mg daily prn clonidine Generalized weakness PT to treat and eval Heparin SQ for DVT prophylaxis PPI for GI prophylaxis Logan Leach MD Aug 20, 2016 11:20
--- NOTE | 2016-08-20 14:49 | PD.CONS ---
Consult Service Palliative Care Consult Requested By Dr. Leach Primary Care Physician Rashi Lott Reason for Consultation a. To assist with evaluation and management of symptoms including: Dysphagia , pain and debility. b. To assist medical decision maker(s) with: better understanding of current medical conditions; weighing benefits/burdens of medical treatment options; making medical treatment decisions. . HPI History of Present Illness Mr. Mayorga is an 89-year-old male with a medical history significant for non- small cell lung cancer, head/neck cancer, anemia, peripheral vascular disease, hyperlipidemia, osteoarthritis and stroke. Patient presented to ED on 08/13/16 for evaluation of worsening neck pain and dysphagia. Patient recently diagnosed with neck cancer approximately one month ago. He was to start radiation with Dr. Eaton, pending follow-up. CT revealing mass in the low right oropharynx, left apical lung mass. Chest x-ray indicating minimal parenchymal changes left upper lobe suspicious for an early inflammatory process. Laboratory workup revealing WBC 7.0, Hgb 9.9, platelet count 232. Sodium 140, potassium 4.5, BUN/creatinine 31/1.81. Patient was admitted for further management. Modified barium swallow eval on 08/14/16 revealing penetration with possible trace aspiration noted with thin liquids. Dr. Cartwright consulted on 08/14/16 for evaluation of dysphagia. G-tube recommended, patient not a candidate for esophageal dilation. Dr. Bansal consulted on 08/14/16 for evaluation of dysphagia. Plan for EGD with placement of PEG tube. 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 Last PET scan showed 3.4 cm mass in the left upper lobe with hypermetabolic mediastinal adenopathy -slow disease progression. Patient declined treatment at time of diagnosis. 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 no evidence of metastatic to the neck lymph nodes. Oncology consulted, patient was seen by Dr. Castanon on 08/14/16. Patient not a candidate for systemic chemotherapy secondary to poor performance status. Patient was seen by Dr. eaton for palliative radiation. PEG tube was placed in 08/07/16 without complications. Palliative radiation has been discussed with patient by Dr. eaton. Patient agreed to proceed with treatment. CT simulation 08/16/16, tolerated well. Awaiting XRT. Palliative care has been consulted for further clarifications of goals of care. Patient seen in his room. He was resting in bed in mild distress secondary to dyspnea and mild left-sided chest pain. Patient with mass to right side of neck , increased work of breathing noted at times. Patient remains afebrile, hypertensive with SBP in the 160s to 180s. Tolerating O2 via nasal cannula at 2 L. Most recent laboratory workup 08/15/16 revealing WBC 10.0, Hgb 8.9, platelet count 217. Sodium 128, potassium 4.0, BUN/creatinine 27/1.47. No new imaging for review. Patient reports that he is tolerating tube feeds via PEG tube. No nausea or vomiting reported. Using urinal without difficulty. Patient's Selina at bedside. Long conversation with patient and . Obtained medical and psychosocial history. Reviewed events leading to these hospitalization, clinical course and current medical management. Patient tells me that he was originally diagnosed with lung cancer in 2013 at 2015. He declined any treatment and continues to decline treatment for lung cancer. Was diagnosis of oropharyngeal cancer approximately a month ago. He tells me that he is aware that he is not a candidate for chemotherapy secondary to weakness, has been seen by Dr. eaton recommended palliative RTX. Reviewed with patient and difference between curative treatment and palliative treatment. Patient electing to proceed with palliative radiation treatment with goal of reducing tumor size an improved quality of life. Patient previously under hospice services but was discharged secondary to improved clinical status. Goal of therapy is for patient and is for patient to complete palliative radiation treatments and proceed with enrollment into hospice at that time. Patient's is elderly and disabled, she is no longer able to care for patient at home. Reviewed likely trajectory of illness to include continued/ progressive physical deconditioning. Patient's reported that she is no longer able to care for patient at home and he is willing to accept placement at a long-term facility. Reviewed risks, benefits and limitations of CPR given patient's clinical condition, patient electing for no CODE STATUS at this time. Community DNR has been completed. is supportive of patient's goals of care at this time. Collaborated with pre sales technical engineerMel. . Function/Cognitive Trajectory Patient independent with ADLs prior to this acute hospitalization. However, reports that patient has been progressively weaker for the past month and a half. Patient stopped driving over 10 years ago as per physician's advice. History of CVA, no neurological deficits reported. No cognitive deficits reported. . Review of Systems ROS Limitations: Hearing Impaired (bilateral hearing aids) Constitutional: COMPLAINS OF: Fatigue, Pain, Generalized weakness Endocrine: DENIES: Heat/cold intolerance Eyes: DENIES: Eye pain Ears, nose, mouth, throat: COMPLAINS OF: Hearing loss, Throat pain, Hoarseness , DENIES: Nasal discharge, Running Nose Respiratory: COMPLAINS OF: Apneas, Cough, Shortness of breath Cardiovascular: COMPLAINS OF: Chest pain, Dyspnea on Exertion, DENIES: Syncope , Lower Extremity Edema Gastrointestinal: COMPLAINS OF: Difficulty Swallowing, DENIES: Abdominal pain , Diarrhea, Nausea, Vomiting Genitourinary: DENIES: Sexual dysfunction Musculoskeletal: DENIES: Joint pain Integumentary: DENIES: Abnormal pigmentation Hematologic/Lymphatics: COMPLAINS OF: Bruising Immunologic/Allergic: DENIES: Eczema Neurologic: COMPLAINS OF: Poor Balance Psychiatric: DENIES: Anxiety, Confusion, Hallucinations Past Family Social History Coded Allergies: Penicillin (Verified Allergy, Severe, 08/13/16) HIVES Past Medical History Hypertension CVA Anemia Lung cancer PVD Diabetes mellitus Non-small cell lung cancer diagnosed in 2015 . Past Surgical History right hallux amputation left knee surgery right anterior tibial angioplasty/atherectomy . Reported Medications Ferrous Sulfate DR (Ferrous Sulfate) 325 Mg Tabdr 325 Mg PO DAILY Losartan (Losartan Potassium) 50 Mg Tab 50 Mg PO DAILY Clopidogrel (Clopidogrel Bisulfate) 75 Mg Tab 75 Mg PO DAILY Vitamin D (Cholecalciferol) 1,000 Unit Tab 1,000 Units PO DAILY Aspirin 81 (Aspirin) 81 Mg Tabdr 81 Mg PO DAILY C 500 (Ascorbic Acid) 500 Mg Tab 500 Mg PO DAILY Norvasc (Amlodipine Besylate) 5 Mg Tab 5 Mg PO DAILY . Current Medications Medications (Trade) Dose Ordered Sig/Mallory Route Start Time Stop Time Status Last Admin (NS Flush) 2 ml UNSCH PRN IV FLUSH 08/13/16 11:30 08/20/16 09:16 Heparin Sodium (Porcine) 5000 units 5,000 units Q12HR SQ 08/13/16 21:00 08/20/16 09:17 Metronidazole 100 ml @ 100 mls/hr Q8H IV 08/13/16 18:00 08/20/16 09:34 (Levaquin 500 Mg Premix Inj) 100 ml @ 100 mls/hr Q24H IV 08/14/16 09:00 08/20/16 09:16 (Dilaudid Pf Inj) 0.2 mg Q4H PRN IV PUSH 08/15/16 08:15 08/19/16 10:42 (Ferrous Sulfate Liq) 300 mg BID PEG 08/16/16 10:43 08/20/16 09:17 (Norvasc) 5 mg DAILY PEG 08/17/16 10:00 08/20/16 09:17 (SoluMEDROL INJ) 40 mg Q12HR IV PUSH 08/18/16 21:00 08/20/16 09:16 (Protonix) 40 mg DAILY PO 08/19/16 09:00 08/20/16 09:17 Family History + family history of cancer Substance Use Tobacco: Former smoker. Quit over 20 years ago. Alcohol: None. Prescription med abuse: None. Illicits: None. . Psychosocial History Patient originally from [place]. Has been to current for the past 63 years. 2 sons together, both sons are . 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 No service. Residing with her prior to these acute hospitalization. . Spiritual/Cultural Factors Scientology hermila. . Living Will: Never completed Health Care Surrogate: Never completed Durable Power of Nuclear Plant Instrument Technician: Never completed Health Care Surrogate(s): No advance directives completed. As per [place] law, medical decision making falls to patient's . . Documented care wishes: No advance directives completed. Today's verbally stated goals: No code. DNR/DNI. Patient electing to continue with conservative management short of no code to include palliative radiation to oropharyngeal mass. Patient likely to enrolled into hospice services once completion of radiation therapy. . Family/friends goals: Patient's fully supported of goals of care. Ethical and Legal Issues No ethical legal issues have been identified. . Physical Exam Vital Signs Date Time Temp Pulse Resp B/P Pulse Ox O2 Delivery O2 Flow Rate FiO2 08/20/16 12:00 95.7 92 21 186/74 99 08/20/16 11:32 99 08/20/16 08:00 96.0 76 19 162/77 100 08/20/16 07:37 100 Nasal Cannula 2.00 08/20/16 06:49 72 08/20/16 06:30 72 145/75 08/20/16 04:00 96.7 76 19 174/74 99 08/20/16 00:00 96.4 80 19 162/76 99 08/19/16 20:00 96.7 84 19 181/77 99 08/19/16 19:28 92 Nasal Cannula 2.00 08/19/16 16:00 98.9 71 17 172/70 97 08/19/16 08/20/16 19:00 07:00 Intake Total 120 ml 2473 ml Output Total 900 ml 600 ml Balance -780 ml 1873 ml Intake Oral 120 ml 0 ml IV Total 1374 ml Tube Feeding 1099 ml Output Urine Total 900 ml 600 ml # Bowel Movements 0 1 Exam CONSTITUTIONAL/GENERAL: This is an elderly thin male in mild distress secondary to increased work of breathing, pain. TUBES/LINES/DRAINS: PIV's, SCDs. SKIN: No jaundice, rashes, or lesions. Ecchymoses on upper extremities. No wounds seen anteriorly. Skin temperature appropriate. Not diaphoretic. HEAD: Atraumatic. Normocephalic. EYES: Pupils equal and round and reactive. Extraocular motions intact. No scleral icterus. No injection or drainage. ENT: Very hard of hearing, hearing aids. Nose without bleeding or purulent drainage. NECK: Trachea midline. Supple. Mass to right side of neck. CARDIOVASCULAR: Regular rate and rhythm without murmurs, gallops, or rubs. Peripheral pulses symmetric. RESPIRATORY/CHEST: Symmetric, increased work of breathing. Mild wheezes to left lung. GASTROINTESTINAL: Abdomen soft, non-tender, nondistended. No guarding. Bowel sounds present. PEG tube in place. Dressing dry and intact. GENITOURINARY: Without palpable bladder distension. MUSCULOSKELETAL: Extremities without clubbing, cyanosis, or edema. No mottling or clubbing. NEUROLOGICAL: Awake and alert. Facial droop noted. Follows commands. Moves all extremities. Verbal, hoarseness, difficult to understand at times. PSYCHIATRIC: No obvious anxiety/depression. no apparent hallucinations or other psychotic thought process. Pleasant. . Diagnostic Tests Imaging Last Impressions Modified Barium Swallow 08/14/16 0000 Signed Impressions: Service Date/Time: Sunday, August 14, 2016 09:40 - CONCLUSION: Penetration with possible trace aspiration noted with thin liquid. Martin Beaver MD Neck CT 08/13/16 0000 Signed Impressions: Service Date/Time: Saturday, August 13, 2016 12:40 - CONCLUSION: Mass in the low right oropharynx. Left apical lung mass. Franc Ramachandran MD Chest X-Ray 08/13/16 0000 Signed Impressions: Service Date/Time: Saturday, August 13, 2016 15:42 - CONCLUSION: Minimal parenchymal changes left upper lobe suspicious for an early inflammatory process. Benny Esquivel MD FACR Procedures * 08/16/16 -PEG tube placement . Patient/Family Conference Present at Family Conference: Patient and Selina Mayorga. Family Conference Time (mins): 46 Family Conference Location: Bedside Issues Discussed: * Palliative care role, purpose, approach * Additional medical, psychosocial, and spiritual history * Patients general health, functional status, and cognitive changes in the months leading up to the current hospitalization * Patient/family understanding of the current medical problems -history of lung cancer. Newly diagnosed oropharyngeal cancer with neck mass. Physical deconditioning. * Patient/family understanding of prognosis * Patients goals of care as best understood from advance directives and/or conversations and/or values * Current medical treatment options and benefits/burdens of those options * Likely scenarios comparing ongoing aggressive care with a transition to comfort measures only * Questions answered to the best of my ability * Palliative care contact information provided * Hospice philosophy and benefits . Assessment and Plan Disease Oriented Problem List: (1) Head and neck malignancy (2) Mass of oropharynx (3) Lung cancer (4) Aspiration pneumonia (5) Chronic kidney disease Symptom Scale: (1) Pain 0-10 Scale: 0 Comment: Secondary to oropharyngeal mass. (2) Dysphagia 0-10 Scale: Unable to quantify Comment: Secondary to oropharyngeal mass. Currently tube feeds via PEG tube. (3) Debility 0-10 Scale: Unable to quantify Comment: Progressive. Worsen for the past month and half. Pertinent Non-Medical Issues Psychosocial: . Resides with and private home. 2 children who are both disease. No service. Spiritual: Scientology hermila. Legal: No advance directives completed. Ethical issues impacting care: Advance directives completed. . Important Contacts Selina Mayorga . . Prognosis Mr. Mayorga is an 89-year-old male with a medical history significant for non- small cell lung cancer, head/neck cancer, anemia, peripheral vascular disease, hyperlipidemia, osteoarthritis and stroke. Patient presented to ED on 08/13/16 for evaluation of worsening neck pain and dysphagia. Patient recently diagnosed with neck cancer approximately one month ago. He was to start radiation with Dr. Eaton. Patient remains at a high risk for further complications, continue decline and . Overall prognosis is poor given her progressive lung cancer, newly diagnosed neck cancer, chronic comorbidities and physical deconditioning. . Code Status: No Code Plan * CODE STATUS: No code status previously recorded. Reviewed risks, benefits and limitations of CPR given patient's clinical condition. Patient electing no code. DNR/DNI. Community DNR completed. * HEALTHCARE DECISION MAKER: Patient participating with medical decision- making. Patient has a fair understanding of diagnosis, treatment choices and prognosis. He relies heavily on his 's input, recommend shared decision- making with . No advance directives completed. As per [place] law, patient 's is healthcare proxy. * GOALS OF CARE: Patient electing for continuation of conservative management short of NO code to include palliative radiation. Patient has agreed to proceed with treatment as previously discussed with Dr. Eaton. Patient and verbalized understanding that patient is not a candidate for chemotherapy or radiosensitizing chemotherapy secondary to poor performance status. Patient amenable to hospice services should his symptom burden continues to increase, unable to tolerate radiation therapy or further decline in performance status. Hospice philosophy and benefits has been introduced to patient and . Goal of therapy is to proceed with palliative radiation and to enroll into hospice services upon completion. Patient's unable to care for patient at home secondary to increased needs, patient requesting placement at a SNF/long-term facility. == Patient not a hospice candidate at this time as he is electing to pursue radiation therapy. * SYMPTOMS: = Pain, secondary to neck mass. Hydromorphone 0.2 mg Q4h PRN available. = Dysphagia, secondary to neck mass. Nothing by mouth at this time. Tolerating tube feeds via PEG tube. = Debility, secondary to malignancy, multiple comorbidities. Currently participating in PT. Likely to worsen. * Palliative care contact information has been provided to patient and . * Case has been discussed with hospice nurse Mel. * Palliative care will continue to follow-up for further clarifications of goals of care as patient's clinical course continues to evolve. . Time Spent Total Floor Time (mins): 80 (Total time to include review and summarization of available medical records, physical exam, goals of care conversation with patient and , completion of community DNR and case discussion with pre sales technical engineer Mel.) >50% Counseling/Coord of Care: Yes Thank you for the opportunity to participate in the care of Mr. Mayorga. Attestation To help prompt me to consider important information that might be impacting today's encounter and assessment, information from prior notes written by myself or my colleagues may have been "brought forward" into today's note. My signature on this note, however, is an attestation that I personally performed the exam, history, and/or decision-making noted today, and, unless otherwise indicated, the interactions with patient, family, and staff as well as the review of records all occurred today. I also attest that the listed assessment and stated plan reflect my best clinical judgment today based on the combination of historical information, prior notes, and today's exam/ interactions. When time spent is documented, it refers only to time spent today by the signer, or if indicated, combined time spent today by collaborating physician/nurse practitioner. Apolonia Rodríguez Aug 20, 2016 14:49
[2016-08-21] VITALS (7 sets, daily range): BP systolic 132–190; BP diastolic 70–83; PULSE 78–93; RESP 17–22; TEMP 96.2–97.3; O2SAT 92–100
[2016-08-21] MEDS: metroNIDAZOLE 500 MG INJ 100 ML IV SCH ×3 (02:40→16:45)
[2016-08-21] MEDS: RESP: ALBUTEROL 2.5 MG/IPRATROPIUM 0.5 MG NEB (SCH) NEB ×4 (08:09→19:23)
--- NOTE | 2016-08-21 08:30 | PD.ONC.PN ---
Subjective Subjective Remarks Righ neck pain the same. No CP/SOB. Tolerating tube feeding. Objective Data Date Time Temp Pulse Resp B/P Pulse Ox O2 Delivery O2 Flow Rate FiO2 08/21/16 08:12 99 Nasal Cannula 2.00 08/21/16 00:00 97.2 93 20 165/83 100 08/20/16 20:26 99 Nasal Cannula 2.00 08/20/16 20:00 97.6 101 20 192/90 100 08/20/16 15:30 08/20/16 12:00 95.7 92 21 186/74 99 08/20/16 11:32 99 08/21/16 08/21/16 08/21/16 07:00 15:00 23:00 Intake Total 1610 ml Output Total 400 ml Balance 1210 ml Administered Medications Medications (Trade) Dose Ordered Sig/Mallory Route PRN Reason Start Time Stop Time Status Last Admin Dose Admin Sodium Chloride (NS Flush) 2 ml UNSCH PRN IV FLUSH FLUSH AFTER USING IV ACCESS 08/13/16 11:30 08/20/16 09:16 Heparin Sodium (Porcine) 5000 units 5,000 units Q12HR SQ 08/13/16 21:00 08/20/16 21:10 Metronidazole 100 ml @ 100 mls/hr Q8H IV 08/13/16 18:00 08/21/16 02:40 Levofloxacin/ Dextrose (Levaquin 500 Mg Premix Inj) 100 ml @ 100 mls/hr Q24H IV 08/14/16 09:00 08/20/16 09:16 Hydromorphone HCl (Dilaudid Pf Inj) 0.2 mg Q4H PRN IV PUSH THROAT DISCOMFORT 08/15/16 08:15 08/19/16 10:42 Ferrous Sulfate (Ferrous Sulfate Liq) 300 mg BID PEG 08/16/16 10:43 08/20/16 21:10 Amlodipine Besylate (Norvasc) 5 mg DAILY PEG 08/17/16 10:00 08/20/16 09:17 Methylprednisolone Sodium Succinate (SoluMEDROL INJ) 40 mg Q12HR IV PUSH 08/18/16 21:00 08/20/16 21:09 Pantoprazole Sodium (Protonix) 40 mg DAILY PO 08/19/16 09:00 08/20/16 09:17 Objective Remarks GENERAL: Well-nourished, well-developed patient. Weak. SKIN: Warm and dry. HEAD: Normocephalic. EYES: No scleral icterus. No injection or drainage. NECK: Supple, trachea midline. No JVD or lymphadenopathy. Fullness right neck and tender. LYMPHATIC: No adenopathy. CARDIOVASCULAR: Regular rate and rhythm without murmurs. RESPIRATORY: Breath sounds equal bilaterally. No accessory muscle use. GASTROINTESTINAL: Abdomen soft, non-tender, nondistended. +PEG tube. EXTREMITIES: No cyanosis, or edema. MUSCULOSKELETAL: Adequate muscle tone. NEUROLOGICAL: No obvious focal deficit. Awake, alert, and oriented x3. PSYCHIATRIC: Appropriate mood and affect; insight and judgment normal. Assessment/Plan Problem List: (1) Head and neck malignancy Status: Chronic Plan: -- Hypopharyngeal squamous cell carcinoma. --PET scan showed hypermetabolic mass in the right side of hypopharynx measured 3.6 x 3.5 cm. ++no clear evidence of metastasis in the neck lymph node. --XRT simulation 08/16, Awaiting XRT. --has very poor performance status and I do not think he could tolerate concurrent chemotherapy. (2) Lung cancer Status: Acute Plan: --diagnosed 2014. --Last PET scan showed 3.4 cm mass in left upper lobe with hypermetabolic mediastinal adenopathy. --disease is progressing very slowly. --no significant pulmonary symptom. 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 --not interested in treatment of lung cancer at this point. (3) Dysphagia Status: Acute Plan: --Dysphagia and odynophagia due to neck mass. --GI following, s/p PEG tube placement. on Jevity 1.5 TF, tolerating well. Assessment 89y/o male with h/o lung cancer now with newly diagnosed head and neck cancer, presented with dysphagia and weakness. history of [id number] lung cancer diagnosed in 2014--declined treatment Hypopharyngeal squamous cell carcinoma. Hypertension. Anemia. Diabetes mellitus. Peripheral vascular disease. Hyperlipidemia, osteoarthritis, stroke. Plan 1. continue tube feeds 2. await start of XRT 3. Can be d/c when stable. João Castanon MD Aug 21, 2016 08:30
[2016-08-21] MEDS: LEVOFLOXACIN 500 MG PREMIX INJ 100 ML IV SCH (08:37)
[2016-08-21] MEDS: FERROUS SULFATE 300 MG /5ML UDC PEG SCH ×2 (08:38→20:56)
[2016-08-21] MEDS: methylPREDNISolone SOD SUCC 40 MG/1 ML VIAL IV PUSH SCH ×2 (08:38→20:56)
[2016-08-21] MEDS: HEPARIN SODIUM - SQ 10,000 UNITS/ML VIAL SQ SCH ×2 (08:38→20:56)
[2016-08-21] MEDS: PANTOPRAZOLE SOD 40 MG DELAYED RELEASE TAB PO SCH (08:38)
[2016-08-21] MEDS: amLODIPine BESYLATE 5 MG TAB PEG SCH (08:38)
--- NOTE | 2016-08-21 09:07 | HHI.PR ---
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 States he would like to go home with hospice. 08/21/16-patient seen and examined, complains of right neck pain. Although patient stated he wanted to go to hospice however he still wants radiation therapy as well. Case was discussed with hospice nurse on 08/20/16 Objective Vitals Vital Signs Date Time Temp Pulse Resp B/P Pulse Ox O2 Delivery O2 Flow Rate FiO2 08/21/16 08:12 99 Nasal Cannula 2.00 08/21/16 08:00 97.3 86 17 190/83 96 08/21/16 00:00 97.2 93 20 165/83 100 08/20/16 20:26 99 Nasal Cannula 2.00 08/20/16 20:00 97.6 101 20 192/90 100 08/20/16 15:30 08/20/16 12:00 95.7 92 21 186/74 99 08/20/16 11:32 99 I/O 08/20/16 08/20/16 08/20/16 08/21/16 08/21/16 08/21/16 07:00 15:00 23:00 07:00 15:00 23:00 Intake Total 526 ml 770 ml 0 ml 1610 ml Output Total 300 ml 225 ml 450 ml 400 ml Balance 226 ml 545 ml -450 ml 1210 ml Intake Oral 0 ml 0 ml 0 ml 240 ml IV Total 100 ml 350 ml Tube Feeding 426 ml 420 ml 1370 ml Output Urine Total 300 ml 225 ml 450 ml 400 ml # Voids 1 # Bowel Movements 1 4 Objective Remarks GENERAL: AND SKIN: Warm and dry. HEAD: Normocephalic. EYES: No scleral icterus. No injection or drainage. NECK: Supple, trachea midline. No JVD or lymphadenopathy. CARDIOVASCULAR: Regular rate and rhythm without murmurs, gallops, or rubs. RESPIRATORY: Breath sounds equal bilaterally. No accessory muscle use. GASTROINTESTINAL: Abdomen soft, non-tender, nondistended. PEG tube in place MUSCULOSKELETAL: No cyanosis, or edema. BACK: Nontender without obvious deformity. No CVA tenderness. 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 (2) Head and neck malignancy ICD Code: C76.0 Status: Chronic (3) Odynophagia ICD Code: R13.10 Status: Acute (4) Dysphagia ICD Code: R13.10 Status: Acute (5) Aspiration pneumonia ICD Code: J69.0 Status: Acute Assessment and Plan 89 year-old man with History of lung cancer Head and neck metastases Appreciate input from oncology, radiation Patient is not a candidate for chemotherapy or radiosensitizing chemotherapy Pending for XRT Hospice was consulted 08/20/16 however patient will not be a candidate for hospice if he is currently receiving radiation therapy Odynophagia, dysphagia , dysarthria from Extrinsic compression from Head and neck cancer Status post PEG tube placement Continue with tube feed Appreciate input from GI Dilaudid prn for pain Aspiration Pneumonia + lung infiltrates Underlying COPD Exacerbation on Flagyl 500 mg IV.+ Levaquin IV Solu Medrol every 12 hours Duo nebs qid chronic kidney insufficiency- Renal indices improving Iron deficiency anemia- Microcytic anemia- Continue supplements Ferrous sulfate 325 mg /peg bid History of hypertension- -- amlodipine 5 mg daily prn clonidine Generalized weakness PT to treat and eval Heparin SQ for DVT prophylaxis PPI for GI prophylaxis Logan Leach MD Aug 21, 2016 09:07
--- NOTE | 2016-08-21 14:06 | HHI.HCPN ---
Reason for visit a. To assist with evaluation and management of symptoms including: Dysphagia , pain and debility. b. To assist medical decision maker(s) with: better understanding of current medical conditions; weighing benefits/burdens of medical treatment options; making medical treatment decisions. . Subjective/Interval History Mr. Mayorga is an 89-year-old male with a medical history significant for non- small cell lung cancer, head/neck cancer, anemia, peripheral vascular disease, hyperlipidemia, osteoarthritis and stroke. 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 Last PET scan showed 3.4 cm mass in the left upper lobe with hypermetabolic mediastinal adenopathy -slow disease progression. Patient declined treatment at time of diagnosis. 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 no evidence of metastatic to the neck lymph nodes. Oncology consulted, patient was seen by Dr. Castanon on 08/14/16. Patient not a candidate for systemic chemotherapy secondary to poor performance status. Patient was seen by Dr. eaton for palliative radiation. PEG tube was placed in 08/07/16 without complications. Palliative radiation has been discussed with patient by Dr. eaton. Patient agreed to proceed with treatment. CT simulation 08/16/16, tolerated well. Awaiting XRT. Palliative care has been consulted for further clarifications of goals of care. Patient seen in his room. He was resting in bed in no acute distress. Denies pain or discomfort this time. Patient remains afebrile, hypertensive with SBP in the 170s to 180s. Tolerating O2 via nasal cannula at 2 L. oxygen saturation in the high 90s. Ongoing tube feedings, denies nausea. No new imaging or labs for review. Long conversation with patient and yesterday. Today patient was seen in his room, not at bedside. Goals of care remain unchanged, patient electing to proceed with palliative radiation treatment with goal of reducing tumor size and improve quality of life. Patient elected no code. DNR/DNI yesterday. Community DNR was completed and placed in chart. Goal of therapy is to complete palliative radiation treatments and proceed with enrollment into hospice at that time. Patient's is elderly and disabled, she is no longer able to care for patient at home. Reviewed likely trajectory of illness to include continued/progressive physical deconditioning. Discussed case with community case manager, patient needs placement at a SNF as he is not eligible for hospice benefits at this time given goals of therapy/electing to pursue radiation therapy. Patient with pending referral to [facility]. XRT simulation 08/16/16, awaiting XRT. . Family/friend interactions See interval note. . Advance Directives Living Will: Never completed Health Care Surrogate: Never completed Durable Power of Country Printer Apprentice: Never completed Advance Directive Specifics Health Care Surrogate(s): No advance directives completed. As per [place] law, medical decision making falls to patient's . . Documented care wishes: No advance directives completed. Significant change in goals: Goals of care remain unchanged. . Objective Vital Signs Date Time Temp Pulse Resp B/P Pulse Ox O2 Delivery O2 Flow Rate FiO2 08/21/16 12:00 96.2 79 17 174/70 96 08/21/16 08:12 99 Nasal Cannula 2.00 08/21/16 08:00 97.3 86 17 190/83 96 08/21/16 00:00 97.2 93 20 165/83 100 08/20/16 20:26 99 Nasal Cannula 2.00 08/20/16 20:00 97.6 101 20 192/90 100 08/20/16 15:30 Intake & Output 08/21/16 08/21/16 07:00 19:00 Intake Total 1610 ml Output Total 850 ml Balance 760 ml Intake Oral 240 ml Tube Feeding 1370 ml Output Urine Total 850 ml Physical Exam CONSTITUTIONAL/GENERAL: This is an elderly thin male in no acute distress. TUBES/LINES/DRAINS: PIV's, SCDs. SKIN: No jaundice, rashes, or lesions. Ecchymoses on upper extremities. No wounds seen anteriorly. Skin temperature appropriate. Not diaphoretic. HEAD: Atraumatic. Normocephalic. EYES: Pupils equal and round and reactive. Extraocular motions intact. No scleral icterus. No injection or drainage. ENT: Very hard of hearing, hearing aids. Nose without bleeding or purulent drainage. NECK: Trachea midline. Supple. Mass to right side of neck. CARDIOVASCULAR: Regular rate and rhythm without murmurs, gallops, or rubs. Peripheral pulses symmetric. RESPIRATORY/CHEST: Symmetric, increased work of breathing. Scatter rhonchi. GASTROINTESTINAL: Abdomen soft, non-tender, nondistended. No guarding. Bowel sounds present. PEG tube in place. Dressing dry and intact. GENITOURINARY: Without palpable bladder distension. MUSCULOSKELETAL: Extremities without clubbing, cyanosis, or edema. No mottling or clubbing. NEUROLOGICAL: Awake and alert. Facial droop noted. Follows commands. Moves all extremities. Verbal, hoarseness, difficult to understand at times. PSYCHIATRIC: No obvious anxiety/depression. no apparent hallucinations or other psychotic thought process. Pleasant and cooperative. . Diagnostic Tests Procedures * 08/16/16 -PEG tube placement . Assessment and Plan Disease Oriented Problem List: (1) Head and neck malignancy (2) Mass of oropharynx (3) Lung cancer (4) Aspiration pneumonia (5) Chronic kidney disease Symptom Scale: (1) Pain 0-10 Scale: 0 Comment: Secondary to oropharyngeal mass. (2) Dysphagia 0-10 Scale: Unable to quantify Comment: Secondary to oropharyngeal mass. Currently tube feeds via PEG tube. (3) Debility 0-10 Scale: Unable to quantify Comment: Progressive. Worsen for the past month and half. Pertinent Non-Medical Issues Psychosocial: . Resides with and private home. 2 children who are both disease. No service. Spiritual: Yazidism hermila. Legal: No advance directives completed. Ethical issues impacting care: Advance directives completed. . Important Contacts Selina Mayorga . . Prognosis Mr. Mayorga is an 89-year-old male with a medical history significant for non- small cell lung cancer, head/neck cancer, anemia, peripheral vascular disease, hyperlipidemia, osteoarthritis and stroke. Patient presented to ED on 08/13/16 for evaluation of worsening neck pain and dysphagia. Patient recently diagnosed with neck cancer approximately one month ago. He was to start radiation with Dr. Eaton. Patient remains at a high risk for further complications, continue decline and . Overall prognosis is poor given her progressive lung cancer, newly diagnosed neck cancer, chronic comorbidities and physical deconditioning. . Code Status: No Code Plan * CODE STATUS: DNR/DNI. Community DNR completed. * HEALTHCARE DECISION MAKER: Patient participating with medical decision- making. Patient has a fair understanding of diagnosis, treatment choices and prognosis. He relies heavily on his 's input, recommend shared decision- making with . No advance directives completed. As per [place] law, patient 's is healthcare proxy. * GOALS OF CARE: Patient electing for continuation of conservative management short of NO code to include palliative radiation. Patient has agreed to proceed with XRT treatment as previously discussed with Dr. Eaton, CT simulation 08/16/16. Patient not a candidate for chemotherapy or radiosensitizing chemotherapy at this time secondary to poor performance status. Pending SNF placement. * HOSPICE: Patient not a hospice candidate at this time as he is electing to pursue radiation therapy. Goal of therapy is to proceed with palliative radiation and to enroll into hospice services upon completion of XRT. However, he is amenable to hospice services should his symptom burden continues to increase, unable to tolerate radiation therapy or further decline in performance status. * SYMPTOMS: = Pain, secondary to neck mass. Hydromorphone 0.2 mg Q4h PRN available. = Dysphagia, secondary to neck mass. Nothing by mouth at this time. Tolerating tube feeds via PEG tube. = Debility, secondary to malignancy, multiple comorbidities. Currently participating in PT. Likely to worsen. * Case discussed with community case manager. Pending referral to SNF. * Palliative care contact information has been provided to patient and . * Palliative care will continue to follow-up for further clarifications of goals of care as patient's clinical course continues to evolve. . Time Spent Total Floor Time (mins): 32 (Total time to include review of medical records, physical exam, goals of care conversation with patient and case discussion with community case manager.) >50% Counseling/Coord of Care: Yes Attestation To help prompt me to consider important information that might be impacting today's encounter and assessment, information from prior notes written by myself or my colleagues may have been "brought forward" into today's note. My signature on this note, however, is an attestation that I personally performed the exam, history, and/or decision-making noted today, and, unless otherwise indicated, the interactions with patient, family, and staff as well as the review of records all occurred today. I also attest that the listed assessment and stated plan reflect my best clinical judgment today based on the combination of historical information, prior notes, and today's exam/ interactions. When time spent is documented, it refers only to time spent today by the signer, or if indicated, combined time spent today by collaborating physician/nurse practitioner. Apolonia Rodríguez Aug 21, 2016 14:06
[2016-08-21] MEDS: HYDROmorphone HCL PF 1 MG/ML VIAL IV PUSH PRN (20:59)
[2016-08-22] VITALS (7 sets, daily range): BP systolic 172–177; BP diastolic 74–82; PULSE 62–102; RESP 15–20; TEMP 95.8–97.8; O2SAT 95–100
[2016-08-22] MEDS: metroNIDAZOLE 500 MG INJ 100 ML IV SCH ×3 (01:49→18:20)
[2016-08-22 06:50] LABS: HEMATOCRIT 35.2 % (39.0-51.0); MEAN CELL VOLUME 76.5 FL (80.0-100.0); MEAN CORPUSCULAR HGB CONC 31.4 % (32.0-36.0); PLATELET COUNT 219 TH/MM3 (150-450); RED CELL DISTRIBUTION WIDTH 17.7 % (11.6-17.2); REVIEW FLAG FINAL; WHITE BLOOD COUNT 13.9 TH/MM3 (4.0-11.0)
[2016-08-22 07:14] LABS: BICARBONATE 34.1 MEQ/L (21.0-32.0); POTASSIUM 4.5 MEQ/L (3.5-5.1)
[2016-08-22] MEDS: RESP: ALBUTEROL 2.5 MG/IPRATROPIUM 0.5 MG NEB (SCH) NEB ×4 (08:42→21:33)
[2016-08-22] MEDS: HYDROmorphone HCL PF 1 MG/ML VIAL IV PUSH PRN ×2 (09:11→15:00)
[2016-08-22] MEDS: SODIUM CHLORIDE 0.9% FLUSH 10 ML FLUSH IV FLUSH PRN (09:11)
[2016-08-22] MEDS: PANTOPRAZOLE SOD 40 MG DELAYED RELEASE TAB PO SCH (09:12)
[2016-08-22] MEDS: FERROUS SULFATE 300 MG /5ML UDC PEG SCH ×2 (09:12→21:24)
[2016-08-22] MEDS: amLODIPine BESYLATE 5 MG TAB PEG SCH (09:12)
[2016-08-22] MEDS: HEPARIN SODIUM - SQ 10,000 UNITS/ML VIAL SQ SCH ×2 (09:12→21:24)
[2016-08-22] MEDS: methylPREDNISolone SOD SUCC 40 MG/1 ML VIAL IV PUSH SCH ×2 (09:13→21:24)
[2016-08-22] MEDS: LEVOFLOXACIN 500 MG PREMIX INJ 100 ML IV SCH (09:13)
--- NOTE | 2016-08-22 10:46 | PD.ONC.PN ---
Subjective Subjective Remarks Afebrile overnight More SOB Per RN he has been coughing up a lot of phlegm. Objective Data Date Time Temp Pulse Resp B/P Pulse Ox O2 Delivery O2 Flow Rate FiO2 08/22/16 08:00 96.2 78 19 173/80 100 172/82 08/22/16 04:00 97.5 102 20 173/74 100 08/22/16 00:00 62 20 98 08/21/16 20:00 97.3 82 22 141/70 99 08/21/16 16:00 96.6 78 18 132/72 100 08/21/16 15:28 92 Nasal Cannula 2.00 08/21/16 12:00 96.2 79 17 174/70 96 08/22/16 08/22/16 08/22/16 07:00 15:00 23:00 Intake Total 580 ml 0 ml Output Total 550 ml Balance 580 ml -550 ml Result Diagram: 08/22/16 0418 08/22/16 0418 Laboratory Results Laboratory Tests Test 08/22/16 04:18 White Blood Count 13.9 TH/MM3 Red Blood Count 4.60 MIL/MM3 Hemoglobin 11.0 GM/DL Hematocrit 35.2 % Mean Corpuscular Volume 76.5 FL Mean Corpuscular Hemoglobin 24.0 PG Mean Corpuscular Hemoglobin 31.4 % Concent Red Cell Distribution Width 17.7 % Platelet Count 219 TH/MM3 Mean Platelet Volume 10.6 FL Sodium Level 143 MEQ/L Potassium Level 4.5 MEQ/L Chloride Level 105 MEQ/L Carbon Dioxide Level 34.1 MEQ/L Anion Gap 4 MEQ/L Blood Urea Nitrogen 45 MG/DL Creatinine 1.33 MG/DL Estimat Glomerular Filtration 62 ML/MIN Rate Random Glucose 153 MG/DL Calcium Level 8.8 MG/DL Administered Medications Medications (Trade) Dose Ordered Sig/Mallory Route PRN Reason Start Time Stop Time Status Last Admin Dose Admin Sodium Chloride (NS Flush) 2 ml UNSCH PRN IV FLUSH FLUSH AFTER USING IV ACCESS 08/13/16 11:30 08/22/16 09:11 Heparin Sodium (Porcine) 5000 units 5,000 units Q12HR SQ 08/13/16 21:00 08/22/16 09:12 Metronidazole 100 ml @ 100 mls/hr Q8H IV 08/13/16 18:00 08/22/16 09:13 Levofloxacin/ Dextrose (Levaquin 500 Mg Premix Inj) 100 ml @ 100 mls/hr Q24H IV 08/14/16 09:00 08/22/16 09:13 Hydromorphone HCl (Dilaudid Pf Inj) 0.2 mg Q4H PRN IV PUSH THROAT DISCOMFORT 08/15/16 08:15 08/22/16 09:11 Ferrous Sulfate (Ferrous Sulfate Liq) 300 mg BID PEG 08/16/16 10:43 08/22/16 09:12 Amlodipine Besylate (Norvasc) 5 mg DAILY PEG 08/17/16 10:00 08/22/16 09:12 Methylprednisolone Sodium Succinate (SoluMEDROL INJ) 40 mg Q12HR IV PUSH 08/18/16 21:00 08/22/16 09:13 Pantoprazole Sodium (Protonix) 40 mg DAILY PO 08/19/16 09:00 08/22/16 09:12 Objective Remarks GENERAL: Elderly male, resting in bed in no distress SKIN: Warm and dry. HEAD: Normocephalic. EYES: No injection or drainage. NECK: Supple, trachea midline. CARDIOVASCULAR: + S1/S2. RESPIRATORY: Breath sounds equal bilaterally. No accessory muscle use. GASTROINTESTINAL: Abdomen soft, non-tender, nondistended. PEG tube noted EXTREMITIES: No cyanosis, or edema. NEUROLOGICAL: Speech is slightly dysarthric. Moving all extremities. Assessment/Plan Problem List: (1) Head and neck malignancy Status: Chronic Plan: -- Hypopharyngeal squamous cell carcinoma. --PET scan showed hypermetabolic mass in the right side of hypopharynx measured 3.6 x 3.5 cm. ++no clear evidence of metastasis in the neck lymph node. --XRT simulation 08/16, Awaiting XRT. --has very poor performance status and I do not think he could tolerate concurrent chemotherapy. (2) Lung cancer Status: Acute Plan: --diagnosed 2014. --Last PET scan showed 3.4 cm mass in left upper lobe with hypermetabolic mediastinal adenopathy. --disease is progressing very slowly. --no significant pulmonary symptom. 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 --not interested in treatment of lung cancer at this point. (3) Dysphagia Status: Acute Plan: --Dysphagia and odynophagia due to neck mass. --GI following, s/p PEG tube placement. on Jevity 1.5 TF, tolerating well. Assessment 89y/o male with h/o lung cancer now with newly diagnosed head and neck cancer, presented with dysphagia and weakness. history of [id number] lung cancer diagnosed in 2014--declined treatment Hypopharyngeal squamous cell carcinoma. Hypertension. Anemia. Diabetes mellitus. Peripheral vascular disease. Hyperlipidemia, osteoarthritis, stroke. Plan 1. Will get chest x-ray today for increased shortness of breath 2. XRT tentatively planned to start today 3. Can be d/c when stable. Attending Statement The exam, history, and the medical decision-making described in the above note were completed with the assistance of the mid-level provider. I reviewed and agree with the findings presented. I attest that I had a [id number] encounter with the patient on the same day, and personally performed and documented my assessment and findings in the medical record. Pain in right neck. Coughing more. High risk of aspiration pneumonia. Will get CXR. Pt still want to have XRT. Continue supportive care. Alexa Odell Aug 22, 2016 10:46 João Castanon MD Aug 22, 2016 12:49
[2016-08-22] MEDS ORDERED: RESP: ALBUTEROL 2.5 MG/IPRATROPIUM 0.5 MG NEB (PRN) NEB (11:15)
--- NOTE | 2016-08-22 11:15 | HHI.PR ---
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 States he would like to go home with hospice. 08/21/16-patient seen and examined, complains of right neck pain. Although patient stated he wanted to go to hospice however he still wants radiation therapy as well. Case was discussed with hospice nurse on 08/20/16 08/22/16-patient seen and examined, worsening shortness of breath however afebrile. Patient still wants radiation therapy Objective Vitals Vital Signs Date Time Temp Pulse Resp B/P Pulse Ox O2 Delivery O2 Flow Rate FiO2 08/22/16 08:00 96.2 78 19 173/80 100 172/82 08/22/16 04:00 97.5 102 20 173/74 100 08/22/16 00:00 62 20 98 08/21/16 20:00 97.3 82 22 141/70 99 08/21/16 16:00 96.6 78 18 132/72 100 08/21/16 15:28 92 Nasal Cannula 2.00 08/21/16 12:00 96.2 79 17 174/70 96 I/O 08/21/16 08/21/16 08/21/16 08/22/16 08/22/16 08/22/16 07:00 15:00 23:00 07:00 15:00 23:00 Intake Total 1610 ml 730 ml 380 ml 580 ml 0 ml Output Total 400 ml 125 ml 150 ml 550 ml Balance 1210 ml 605 ml 230 ml 580 ml -550 ml Intake Oral 240 ml 0 ml 0 ml 0 ml IV Total 0 ml 0 ml Tube Feeding 1370 ml 630 ml 280 ml 480 ml Tube Irrigant 100 ml Other 100 ml 100 ml Output Urine Total 400 ml 125 ml 150 ml 550 ml # Voids 4 3 # Bowel Movements 2 0 Result Diagram: 08/22/16 0418 08/22/16 0418 Objective Remarks GENERAL: AND SKIN: Warm and dry. HEAD: Normocephalic. EYES: No scleral icterus. No injection or drainage. NECK: Supple, trachea midline. No JVD or lymphadenopathy. CARDIOVASCULAR: Regular rate and rhythm without murmurs, gallops, or rubs. RESPIRATORY: Breath sounds decrease bilaterally. No accessory muscle use. GASTROINTESTINAL: Abdomen soft, non-tender, nondistended. PEG tube in place MUSCULOSKELETAL: No cyanosis, or edema. BACK: Nontender without obvious deformity. No CVA tenderness. 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 (2) Head and neck malignancy ICD Code: C76.0 Status: Chronic (3) Odynophagia ICD Code: R13.10 Status: Acute (4) Dysphagia ICD Code: R13.10 Status: Acute (5) Aspiration pneumonia ICD Code: J69.0 Status: Acute Assessment and Plan 89 year-old man with History of lung cancer Head and neck metastases Appreciate input from oncology, radiation Patient is not a candidate for chemotherapy or radiosensitizing chemotherapy Awaiting for XRT possible today 08/22/16 Hospice was consulted 08/20/16 however patient will not be a candidate for hospice if he is currently receiving radiation therapy Odynophagia, dysphagia , dysarthria from Extrinsic compression from Head and neck cancer Status post PEG tube placement Continue with tube feed Appreciate input from GI Dilaudid prn for pain Aspiration Pneumonia + lung infiltrates Underlying COPD Exacerbation on Flagyl 500 mg IV.+ Levaquin IV Solu Medrol every 12 hours Duo nebs qid Dyspnea Chest x-ray pending as patient with increased risk of aspiration although he is currently nothing by mouth chronic kidney insufficiency- Renal indices improving Iron deficiency anemia- Microcytic anemia- Continue supplements Ferrous sulfate 325 mg /peg bid History of hypertension- -- amlodipine 5 mg daily prn clonidine Generalized weakness PT to treat and eval Heparin SQ for DVT prophylaxis PPI for GI prophylaxis Logan Leach MD Aug 22, 2016 11:15
--- NOTE | 2016-08-22 11:29 | RADRPT ---
EXAM DATE/TIME: 08/22/2016 10:39 [facility] COMPARISON: CHEST SINGLE AP, August 13, 2016, 15:42. INDICATIONS : Short of breath. MEDICAL HISTORY : Diabetes mellitus type 2. Dementia. Hypertension.Neck cancer SURGICAL HISTORY : None. ENCOUNTER: Subsequent ACUITY: 2 weeks PAIN SCORE: 0/10 LOCATION: Bilateral chest FINDINGS: Patchy airspace disease remains in the left upper lobe. The right lung is clear. The heart and pulmo nary vascularity are normal. The portion of the bony skeleton visualized is unremarkable. CONCLUSION: Stable chest with patchy airspace disease left upper lobe. Benny Esquivel MD FACR on August 22, 2016 at 11:25 Board Certified Radiologist. This report was verified electronically.
--- NOTE | 2016-08-22 15:36 | HHI.HCPN ---
Reason for visit a. To assist with evaluation and management of symptoms including: Dysphagia , pain and debility. b. To assist medical decision maker(s) with: better understanding of current medical conditions; weighing benefits/burdens of medical treatment options; making medical treatment decisions. . Subjective/Interval History Mr. Mayorga is an 89-year-old male with a medical history significant for non- small cell lung cancer, head/neck cancer, anemia, peripheral vascular disease, hyperlipidemia, osteoarthritis and stroke. 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 Last PET scan showed 3.4 cm mass in the left upper lobe with hypermetabolic mediastinal adenopathy -slow disease progression. Patient declined treatment at time of diagnosis. 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 no evidence of metastatic to the neck lymph nodes. Oncology consulted, patient was seen by Dr. Castanon on 08/14/16. Patient not a candidate for systemic chemotherapy secondary to poor performance status. Patient was seen by Dr. eaton for palliative radiation. PEG tube was placed in 08/07/16 without complications. Palliative radiation has been discussed with patient by Dr. eaton. Patient agreed to proceed with treatment. CT simulation 08/16/16, tolerated well. Awaiting XRT. Palliative care has been consulted for further clarifications of goals of care. Patient seen in his room. Patient sitting up in bed in no acute distress. Denies pain or discomfort this time. Denies nausea, vomiting. Endorsing some soft stool, reviewed with patient that to feeding may be responsible for this. Patient remains afebrile, hypertensive with SBP in the 170s. Tolerating O2 via nasal cannula at 2 L. oxygen saturation in the high 90s. Ongoing tube feedings. Endorsing cough, chest x-ray today showing stable chest with patchy airspace disease and left upper lobe. XRT simulation 08/16/16, awaiting XRT. Discussed with bedside RN Silvina, call was placed to Dr. eaton's office for update on tentative in association of palliative radiation. Discussed with patient, goals of care remain unchanged, patient electing to proceed with palliative radiation treatment with goal of reducing tumor size and improve quality of life. Goal of therapy is to complete palliative radiation treatments and proceed with enrollment into hospice at that time. Patient's is elderly and disabled, she is no longer able to care for patient at home. Patient in need of placement at a SNF as he is not eligible for hospice at this time given goals of therapy/electing to pursue radiation therapy. Patient with pending referral to [facility]. . Family/friend interactions No family at bedside. . Advance Directives Living Will: Never completed Health Care Surrogate: Never completed Durable Power of Plastic Roller: Never completed Advance Directive Specifics Health Care Surrogate(s): No advance directives completed. As per [place] law, medical decision making falls to patient's . . Documented care wishes: No advance directives completed. Significant change in goals: Goals of care remains unchanged. . Objective Vital Signs Date Time Temp Pulse Resp B/P Pulse Ox O2 Delivery O2 Flow Rate FiO2 08/22/16 12:00 95.8 68 15 177/74 100 08/22/16 08:00 96.2 78 19 173/80 100 172/82 08/22/16 04:00 97.5 102 20 173/74 100 08/22/16 00:00 62 20 98 08/21/16 20:00 97.3 82 22 141/70 99 08/21/16 16:00 96.6 78 18 132/72 100 Intake & Output 08/22/16 08/22/16 07:00 19:00 Intake Total 960 ml 798 ml Output Total 150 ml 850 ml Balance 810 ml -52 ml Intake Oral 0 ml 0 ml IV Total 0 ml 200 ml Tube Feeding 760 ml 258 ml Other 200 ml 340 ml Output Urine Total 150 ml 850 ml # Voids 3 # Bowel Movements 0 0 Physical Exam CONSTITUTIONAL/GENERAL: This is an elderly thin male in no acute distress. TUBES/LINES/DRAINS: PIV's, SCDs. SKIN: No jaundice, rashes, or lesions. Ecchymoses on upper extremities. No wounds seen anteriorly. Skin temperature appropriate. Not diaphoretic. HEAD: Atraumatic. Normocephalic. EYES: Pupils equal and round and reactive. Extraocular motions intact. No scleral icterus. No injection or drainage. ENT: Very hard of hearing, hearing aids. Nose without bleeding or purulent drainage. NECK: Trachea midline. Supple. Mass to right side of neck. CARDIOVASCULAR: Regular rate and rhythm without murmurs, gallops, or rubs. Peripheral pulses symmetric. RESPIRATORY/CHEST: Symmetric, increased work of breathing. Scatter rhonchi. GASTROINTESTINAL: Abdomen soft, non-tender, nondistended. No guarding. Bowel sounds present. PEG tube in place. Dressing dry and intact. GENITOURINARY: Without palpable bladder distension. MUSCULOSKELETAL: Extremities without clubbing, cyanosis, or edema. No mottling or clubbing. NEUROLOGICAL: Awake and alert. Facial droop noted. Follows commands. Moves all extremities. Verbal, hoarseness, difficult to understand at times. PSYCHIATRIC: No obvious anxiety/depression. no apparent hallucinations or other psychotic thought process. Pleasant and cooperative. . Diagnostic Tests Laboratory Laboratory Tests Test 08/22/16 04:18 White Blood Count 13.9 TH/MM3 (4.0-11.0) Red Blood Count 4.60 MIL/MM3 (4.50-5.90) Hemoglobin 11.0 GM/DL (13.0-17.0) Hematocrit 35.2 % (39.0-51.0) Mean Corpuscular Volume 76.5 FL (80.0-100.0) Mean Corpuscular Hemoglobin 24.0 PG (27.0-34.0) Mean Corpuscular Hemoglobin 31.4 % Concent (32.0-36.0) Red Cell Distribution Width 17.7 % (11.6-17.2) Platelet Count 219 TH/MM3 (150-450) Mean Platelet Volume 10.6 FL (7.0-11.0) Sodium Level 143 MEQ/L (136-145) Potassium Level 4.5 MEQ/L (3.5-5.1) Chloride Level 105 MEQ/L (98-107) Carbon Dioxide Level 34.1 MEQ/L (21.0-32.0) Anion Gap 4 MEQ/L (5-15) Blood Urea Nitrogen 45 MG/DL (7-18) Creatinine 1.33 MG/DL (0.60-1.30) Estimat Glomerular Filtration 62 ML/MIN (>89) Rate Random Glucose 153 MG/DL (74-106) Calcium Level 8.8 MG/DL (8.5-10.1) Result Diagram: 08/22/16 0418 08/22/16 0418 Imaging Last 48 hours Impressions Chest X-Ray 08/22/16 0000 Signed Impressions: Service Date/Time: Monday, August 22, 2016 10:39 - CONCLUSION: Stable chest with patchy airspace disease left upper lobe. Benny Esquivel MD FACR Procedures * 08/16/16 -PEG tube placement . Assessment and Plan Disease Oriented Problem List: (1) Head and neck malignancy (2) Mass of oropharynx (3) Lung cancer (4) Aspiration pneumonia (5) Chronic kidney disease Symptom Scale: (1) Pain 0-10 Scale: 0 Comment: Secondary to oropharyngeal mass. (2) Dysphagia 0-10 Scale: Unable to quantify Comment: Secondary to oropharyngeal mass. Currently tube feeds via PEG tube. (3) Debility 0-10 Scale: Unable to quantify Comment: Progressive. Worsen for the past month and half. Pertinent Non-Medical Issues Psychosocial: . Resides with and private home. 2 children who are both disease. No service. Spiritual: Caodaism hermila. Legal: No advance directives completed. Ethical issues impacting care: Advance directives completed. . Important Contacts Selina Mayorga . . Prognosis Mr. Mayorga is an 89-year-old male with a medical history significant for non- small cell lung cancer, head/neck cancer, anemia, peripheral vascular disease, hyperlipidemia, osteoarthritis and stroke. Patient presented to ED on 08/13/16 for evaluation of worsening neck pain and dysphagia. Patient recently diagnosed with neck cancer approximately one month ago. He was to start radiation with Dr. Eaton. Patient remains at a high risk for further complications, continue decline and . Overall prognosis is poor given her progressive lung cancer, newly diagnosed neck cancer, chronic comorbidities and physical deconditioning. . Code Status: No Code Plan * CODE STATUS: DNR/DNI. Community DNR completed. * HEALTHCARE DECISION MAKER: Patient participating with medical decision- making. Patient has a fair understanding of diagnosis, treatment choices and prognosis. He relies heavily on his 's input, recommend shared decision- making with . No advance directives completed. As per [place] law, patient 's is healthcare proxy. * GOALS OF CARE: Patient electing for continuation of conservative management short of NO code to include palliative radiation. Patient has agreed to proceed with XRT treatment as previously discussed with Dr. Eaton, CT simulation 08/16/16. Patient not a candidate for chemotherapy or radiosensitizing chemotherapy at this time secondary to poor performance status. Pending SNF placement. * Discussed with bedside JAN Cool, call was placed to Dr. Eaton's office for update on tentative initiation of palliative radiation. Discussed with patient , goal of therapy is to complete palliative radiation treatments and proceed with enrollment into hospice at that time. Patient's is elderly and disabled, she is no longer able to care for patient at home. Patient in need of placement at a SNF as he is not eligible for hospice at this time given goals of therapy/electing to pursue radiation therapy. Patient with pending referral to [facility]. * HOSPICE: Patient not a hospice candidate at this time as he is electing to pursue radiation therapy. Goal of therapy is to proceed with palliative radiation and to enroll into hospice services upon completion of XRT. However, he is amenable to hospice services should his symptom burden continues to increase, unable to tolerate radiation therapy or further decline in performance status. * SYMPTOMS: = Pain, secondary to neck mass. Hydromorphone 0.2 mg Q4h PRN available. = Dysphagia, secondary to neck mass. Nothing by mouth at this time. Tolerating tube feeds via PEG tube. = Debility, secondary to malignancy, multiple comorbidities. Currently participating in PT. Likely to worsen. * Case discussed with bedside RN Silvina Barksdale. * Palliative care contact information has been provided to patient and . * Palliative care will continue to follow-up for further clarifications of goals of care as patient's clinical course continues to evolve. . Time Spent Total Floor Time (mins): 28 (Total time to include review medical records, physical exam, case discussion with bedside RN.) >50% Counseling/Coord of Care: Yes Attestation To help prompt me to consider important information that might be impacting today's encounter and assessment, information from prior notes written by myself or my colleagues may have been "brought forward" into today's note. My signature on this note, however, is an attestation that I personally performed the exam, history, and/or decision-making noted today, and, unless otherwise indicated, the interactions with patient, family, and staff as well as the review of records all occurred today. I also attest that the listed assessment and stated plan reflect my best clinical judgment today based on the combination of historical information, prior notes, and today's exam/ interactions. When time spent is documented, it refers only to time spent today by the signer, or if indicated, combined time spent today by collaborating physician/nurse practitioner. Apolonia Rodríguez Aug 22, 2016 15:36
[2016-08-23] VITALS: BP 177/85; PULSE 79; RESP 20; TEMP 97.9; O2SAT 98
[2016-08-23] MEDS: metroNIDAZOLE 500 MG INJ 100 ML IV SCH ×3 (02:35→17:08)
[2016-08-23] MEDS: HYDROmorphone HCL PF 1 MG/ML VIAL IV PUSH PRN ×2 (02:40→11:04)
[2016-08-23 05:44] LABS: AUTOMATED NEUTROPHIL # 13.1 TH/MM3 (1.8-7.7); BASOPHIL % 0.1 % (0.0-2.0); HEMATOCRIT 32.7 % (39.0-51.0); LYMPH % 1.1 % (9.0-44.0); LYMPHOCYTE # 0.2 TH/MM3 (1.0-4.8); MEAN CORPUSCULAR HEMOGLOBIN 24.9 PG (27.0-34.0); MEAN CORPUSCULAR HGB CONC 32.3 % (32.0-36.0); MONO % 6.5 % (0.0-8.0); NEUT % 92.3 % (16.0-70.0); PLATELET COUNT 200 TH/MM3 (150-450); RED BLOOD COUNT 4.24 MIL/MM3 (4.50-5.90); RED CELL DISTRIBUTION WIDTH 17.2 % (11.6-17.2); WHITE BLOOD COUNT 14.2 TH/MM3 (4.0-11.0)
[2016-08-23 05:53] LABS: HEMO FLAGS AUTO DIFF
[2016-08-23 08:00] VITALS: BP_SYST 196; BP_SYST 207; BP_DIAS 86; BP_DIAS 92; PULSE 82; RESP 15; TEMP 96.9; O2SAT 99
[2016-08-23] MEDS: RESP: ALBUTEROL 2.5 MG/IPRATROPIUM 0.5 MG NEB (SCH) NEB ×3 (08:01→15:34)
[2016-08-23 08:02] VITALS: O2SAT 98
[2016-08-23] MEDS: LEVOFLOXACIN 500 MG PREMIX INJ 100 ML IV SCH (08:19)
[2016-08-23] MEDS: PANTOPRAZOLE SOD 40 MG DELAYED RELEASE TAB PO SCH (08:20)
[2016-08-23] MEDS: FERROUS SULFATE 300 MG /5ML UDC PEG SCH (08:20)
[2016-08-23] MEDS: methylPREDNISolone SOD SUCC 40 MG/1 ML VIAL IV PUSH SCH (08:20)
[2016-08-23] MEDS: amLODIPine BESYLATE 5 MG TAB PEG SCH (08:20)
[2016-08-23] MEDS: HEPARIN SODIUM - SQ 10,000 UNITS/ML VIAL SQ SCH (08:20)
[2016-08-23 08:21] LABS: BANDS 2 % (0-6); METAMYELOCYTES 1 % (0-1); NEUTROPHIL # MANUAL DIFF 13.1 TH/MM3 (1.8-7.7); POLYS (SEG NEUTROPHILS) 89 % (16-70); WBC DIFF SAMPLE 100
[2016-08-23] MEDS: SODIUM CHLORIDE 0.9% FLUSH 10 ML FLUSH IV FLUSH PRN (08:21)
[2016-08-23 08:22] LABS: OVALOCYTES 1+ (NORMAL); PLATELET ESTIMATE SMEAR NORMAL (NORMAL); PLATELET MORPHOLOGY NORMAL (NORMAL)
[2016-08-23 08:23] LABS: SCAN/DIFF FINAL DIFF MANUAL
--- NOTE | 2016-08-23 09:09 | PD.ONC.PN ---
Subjective Subjective Remarks Afebrile overnight Complaining of shortness of breath Continues to cough up a lot of phlegm Objective Data Date Time Temp Pulse Resp B/P Pulse Ox O2 Delivery O2 Flow Rate FiO2 08/23/16 08:02 98 Nasal Cannula 2.00 08/23/16 08:00 96.9 82 15 207/86 99 196/92 08/23/16 00:00 97.9 79 20 177/85 98 08/22/16 21:36 98 Nasal Cannula 2.00 08/22/16 20:00 97.8 84 20 173/81 95 08/22/16 16:00 96.1 76 16 173/79 98 08/22/16 12:00 95.8 68 15 177/74 100 Result Diagram: 08/23/16 0430 08/22/16 0418 Laboratory Results Laboratory Tests Test 08/23/16 04:30 White Blood Count 14.2 TH/MM3 Red Blood Count 4.24 MIL/MM3 Hemoglobin 10.6 GM/DL Hematocrit 32.7 % Mean Corpuscular Volume 77.0 FL Mean Corpuscular Hemoglobin 24.9 PG Mean Corpuscular Hemoglobin 32.3 % Concent Red Cell Distribution Width 17.2 % Platelet Count 200 TH/MM3 Mean Platelet Volume 10.6 FL Neutrophils (%) (Auto) 92.3 % Lymphocytes (%) (Auto) 1.1 % Monocytes (%) (Auto) 6.5 % Eosinophils (%) (Auto) 0.0 % Basophils (%) (Auto) 0.1 % Neutrophils # (Auto) 13.1 TH/MM3 Lymphocytes # (Auto) 0.2 TH/MM3 Monocytes # (Auto) 0.9 TH/MM3 Eosinophils # (Auto) 0.0 TH/MM3 Basophils # (Auto) 0.0 TH/MM3 CBC Comment AUTO DIFF Differential Total Cells 100 Counted Neutrophils % (Manual) 89 % Band Neutrophils % 2 % Lymphocytes % 2 % Monocytes % 6 % Neutrophils # (Manual) 13.1 TH/MM3 Metamyelocytes 1 % Differential Comment FINAL DIFF MANUAL Platelet Estimate NORMAL Platelet Morphology Comment NORMAL Ovalocytes 1+ Administered Medications Medications (Trade) Dose Ordered Sig/Mallory Route PRN Reason Start Time Stop Time Status Last Admin Dose Admin Sodium Chloride (NS Flush) 2 ml UNSCH PRN IV FLUSH FLUSH AFTER USING IV ACCESS 08/13/16 11:30 08/23/16 08:21 Heparin Sodium (Porcine) 5000 units 5,000 units Q12HR SQ 08/13/16 21:00 08/23/16 08:20 Metronidazole 100 ml @ 100 mls/hr Q8H IV 08/13/16 18:00 08/23/16 02:35 Levofloxacin/ Dextrose (Levaquin 500 Mg Premix Inj) 100 ml @ 100 mls/hr Q24H IV 08/14/16 09:00 08/23/16 08:19 Hydromorphone HCl (Dilaudid Pf Inj) 0.2 mg Q4H PRN IV PUSH THROAT DISCOMFORT 08/15/16 08:15 08/23/16 02:40 Ferrous Sulfate (Ferrous Sulfate Liq) 300 mg BID PEG 08/16/16 10:43 08/23/16 08:20 Amlodipine Besylate (Norvasc) 5 mg DAILY PEG 08/17/16 10:00 08/23/16 08:20 Pantoprazole Sodium (Protonix) 40 mg DAILY PO 08/19/16 09:00 08/23/16 08:20 Methylprednisolone Sodium Succinate (SoluMEDROL INJ) 20 mg Q12HR IV PUSH 08/22/16 21:00 08/23/16 08:20 Objective Remarks GENERAL: Elderly male, resting in bed with eyes closed. Awakens easily to verbal stimuli SKIN: Warm and dry. HEAD: Normocephalic. EYES: No injection or drainage. NECK: Supple, trachea midline. CARDIOVASCULAR: + S1/S2. RESPIRATORY: Scattered rhonchi throughout. Prolonged inspiratory phase GASTROINTESTINAL: Abdomen soft, non-tender, nondistended. PEG tube noted EXTREMITIES: No cyanosis, or edema. NEUROLOGICAL: Speech is slightly dysarthric. Moving all extremities. Assessment/Plan Problem List: (1) Head and neck malignancy Status: Chronic Plan: -- Hypopharyngeal squamous cell carcinoma. --PET scan showed hypermetabolic mass in the right side of hypopharynx measured 3.6 x 3.5 cm. ++no clear evidence of metastasis in the neck lymph node. --XRT simulation 08/16, Awaiting XRT. --has very poor performance status and I do not think he could tolerate concurrent chemotherapy. (2) Lung cancer Status: Acute Plan: --diagnosed 2014. --Last PET scan showed 3.4 cm mass in left upper lobe with hypermetabolic mediastinal adenopathy. --disease is progressing very slowly. --no significant pulmonary symptom. 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 --not interested in treatment of lung cancer at this point. (3) Dysphagia Status: Acute Plan: --Dysphagia and odynophagia due to neck mass. --GI following, s/p PEG tube placement. on Jevity 1.5 TF, tolerating well. Assessment 89y/o male with h/o lung cancer now with newly diagnosed head and neck cancer, presented with dysphagia and weakness. history of [id number] lung cancer diagnosed in 2014--declined treatment Hypopharyngeal squamous cell carcinoma. Hypertension. Anemia. Diabetes mellitus. Peripheral vascular disease. Hyperlipidemia, osteoarthritis, stroke. Plan 1. Continue IV Abx, breathing treatments. 2. XRT today 3. Overall prognosis is quite poor. He would be a great candidate for Hospice but due to palliative XRT this makes him ineligible. Attending Statement The exam, history, and the medical decision-making described in the above note were completed with the assistance of the mid-level provider. I reviewed and agree with the findings presented. I attest that I had a [id number] encounter with the patient on the same day, and personally performed and documented my assessment and findings in the medical record. Right neck pain stable. Discussed with , pt will start XRT today or tomorrow. Continue supportive care. Alexa Odell Aug 23, 2016 09:09 João Castanon MD Aug 23, 2016 13:49
[2016-08-23] MEDS ORDERED: ENALAPRILAT 2.5 MG/2 ML VIAL IV PUSH PRN (09:30)
[2016-08-23] MEDS ORDERED: amLODIPine BESYLATE 5 MG TAB PO ONE (09:30)
--- NOTE | 2016-08-23 10:26 | HHI.PR ---
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 States he would like to go home with hospice. 08/21/16-patient seen and examined, complains of right neck pain. Although patient stated he wanted to go to hospice however he still wants radiation therapy as well. Case was discussed with hospice nurse on 08/20/16 08/22/16-patient seen and examined, worsening shortness of breath however afebrile. Patient still wants radiation therapy 08/23/16-patient seen and examined, BP is up and patient with increasing and worsening shortness of breath however currently afebrile Objective Vitals Vital Signs Date Time Temp Pulse Resp B/P Pulse Ox O2 Delivery O2 Flow Rate FiO2 08/23/16 08:02 98 Nasal Cannula 2.00 08/23/16 08:00 96.9 82 15 207/86 99 196/92 08/23/16 00:00 97.9 79 20 177/85 98 08/22/16 21:36 98 Nasal Cannula 2.00 08/22/16 20:00 97.8 84 20 173/81 95 08/22/16 16:00 96.1 76 16 173/79 98 08/22/16 12:00 95.8 68 15 177/74 100 I/O 08/22/16 08/22/16 08/22/16 08/23/16 08/23/16 08/23/16 07:00 15:00 23:00 07:00 15:00 23:00 Intake Total 580 ml 798 ml 540 ml 100 ml Output Total 850 ml 750 ml 0 ml Balance 580 ml -52 ml -210 ml 100 ml Intake Oral 0 ml 0 ml 0 ml IV Total 0 ml 200 ml 100 ml 100 ml Tube Feeding 480 ml 258 ml 440 ml Other 100 ml 340 ml Output Urine Total 850 ml 750 ml 0 ml # Voids 3 # Bowel Movements 0 Result Diagram: 08/23/16 0430 08/22/16 0418 Objective Remarks GENERAL: AND SKIN: Warm and dry. HEAD: Normocephalic. EYES: No scleral icterus. No injection or drainage. NECK: Supple, trachea midline. No JVD or lymphadenopathy. CARDIOVASCULAR: Regular rate and rhythm without murmurs, gallops, or rubs. RESPIRATORY: Breath sounds decrease bilaterally. No accessory muscle use. GASTROINTESTINAL: Abdomen soft, non-tender, nondistended. PEG tube in place MUSCULOSKELETAL: No cyanosis, or edema. BACK: Nontender without obvious deformity. No CVA tenderness. 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 (2) Head and neck malignancy ICD Code: C76.0 Status: Chronic (3) Odynophagia ICD Code: R13.10 Status: Acute (4) Dysphagia ICD Code: R13.10 Status: Acute (5) Aspiration pneumonia ICD Code: J69.0 Status: Acute Assessment and Plan 89 year-old man with History of lung cancer Head and neck metastases Appreciate input from oncology, radiation Patient is not a candidate for chemotherapy or radiosensitizing chemotherapy Awaiting for XRT Hospice was consulted 08/20/16 however patient will not be a candidate for hospice if he is planning to receive radiation therapy Odynophagia, dysphagia , dysarthria from Extrinsic compression from Head and neck cancer Status post PEG tube placement Continue with tube feed Appreciate input from GI Dilaudid prn for pain Aspiration Pneumonia + lung infiltrates Underlying COPD Exacerbation on Flagyl 500 mg IV.+ Levaquin Continue IV Solu Medrol every 12 hours Duo nebs qid Dyspnea Chest x-ray pending as patient with increased risk of aspiration although he is currently nothing by mouth chronic kidney insufficiency- Renal indices improving Iron deficiency anemia- Microcytic anemia- Continue supplements Ferrous sulfate 325 mg /peg bid History of hypertension- labile BP has BP 207/86 Increase amlodipine to 10 mg daily and start hydralazine 25 mg every 8 hour prn clonidine Consider Cardene drip if no improvement Generalized weakness PT to treat and eval Heparin SQ for DVT prophylaxis PPI for GI prophylaxis Logan Leach MD Aug 23, 2016 10:26
--- NOTE | 2016-08-23 10:55 | HHI.HCPN ---
Reason for visit a. To assist with evaluation and management of symptoms including: Dysphagia , pain and debility. b. To assist medical decision maker(s) with: better understanding of current medical conditions; weighing benefits/burdens of medical treatment options; making medical treatment decisions. . Subjective/Interval History Mr. Mayorga is an 89-year-old male with a medical history significant for non- small cell lung cancer, head/neck cancer, anemia, peripheral vascular disease, hyperlipidemia, osteoarthritis and stroke. 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 Last PET scan showed 3.4 cm mass in the left upper lobe with hypermetabolic mediastinal adenopathy -slow disease progression. Patient declined treatment at time of diagnosis. 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 no evidence of metastatic to the neck lymph nodes. Oncology consulted, patient was seen by Dr. Castanon on 08/14/16. Patient not a candidate for systemic chemotherapy secondary to poor performance status. Patient was seen by Dr. eaton for palliative radiation. PEG tube was placed in 08/07/16 without complications. Palliative radiation has been discussed with patient by Dr. eaton. Patient agreed to proceed with treatment. CT simulation 08/16/16, tolerated well. Awaiting XRT. Palliative care has been consulted for further clarifications of goals of care. Patient hypertensive with SBP in the 190s to 200s. Remains on 2 L nasal cannula , endorsing worsening dyspnea. A febrile. Laboratory workup today showing WBC 14. 2, Hgb 10.6, platelet count 200. No new imaging for review. Patient seen in his room. Found sitting up in bed in moderate distress secondary to increased work of breathing. Audible stridor noted. Verbal, garble speech but able to communicate. Patient endorsing increased shortness of breath since yesterday, worsening weakness secondary to overall debility. Patient reports that he has been unable to sleep since Saturday, feeling worse everyday. Endorsing worsening neck pain and abdominal discomfort. Patient status, tearful. Reports that presented to from [facility] visited him earlier today. Patient tells me that he does not want to go to nursing facility, he wants to go home. Reviewed with patient that is unable to care for him at home secondary to increased needs. Share concerns regarding worsening clinical status. Reviewed with patient that his prognosis is very poor and that I am afraid that he does not have much time left. Reviewed continuation of conservative management short of no code to include palliative radiation vs transition to comfort-directed care with hospice given his poor prognosis and worsening clinical status. Patient electing hospice care center at this time. However, wishing to discuss with . Telephone call to patient's . Left message on voicemail. Case discussed with case hardener Felisa and marketing development representative from [facility]. Case discussed with bedside RN. Palliative care will follow up for full clarifications of goals of care once patient's is present at bedside. 13:45. Telephone conversation with patient's . Reviewed my previous conversation with patient in which he reports feeling worse secondary to increased debility, increased pain, worsening shortness of breath and insomnia. Reviewed that patient is declining discharge to group home facility and wishing to go home. Reviewed my conversation with patient in which we discussed his 's inability to care for him at home secondary to increased needs. Share concerns regarding worsening clinical status. Reviewed with patient and that patient's prognosis is very poor and that I am afraid that he does not have much time left. Reviewed continuation of conservative management short of no code to include palliative radiation vs transition to comfort-directed care with hospice given his poor prognosis and worsening clinical status. Patient electing hospice care center at this time. was supportive of this decision. Discussed risks, benefits and limitations of continuation of tube feedings. Patient requesting to continue tube feeds temporarily for now. Discussed with patient that tube feeds would be discontinued as his clinical condition worsen. Patient verbalized understanding. Case has been discussed with case management, bedside RN and hat forming machine feeder. Dr. Eaton's office was notified of hospice admission. . Family/friend interactions See interval note. . Advance Directives Living Will: Never completed Health Care Surrogate: Never completed Durable Power of Operator Command Support Systems: Never completed Advance Directive Specifics Health Care Surrogate(s): No advance directives completed. As per [place] law, medical decision making falls to patient's . . Documented care wishes: No advance directives completed. Significant change in goals: No code. DNR/DNI. Patient electing to transition to comfort-directed care with hospice. . Objective Vital Signs Date Time Temp Pulse Resp B/P Pulse Ox O2 Delivery O2 Flow Rate FiO2 08/23/16 08:02 98 Nasal Cannula 2.00 08/23/16 08:00 96.9 82 15 207/86 99 196/92 08/23/16 00:00 97.9 79 20 177/85 98 08/22/16 21:36 98 Nasal Cannula 2.00 08/22/16 20:00 97.8 84 20 173/81 95 08/22/16 16:00 96.1 76 16 173/79 98 08/22/16 12:00 95.8 68 15 177/74 100 Physical Exam CONSTITUTIONAL/GENERAL: This is an elderly thin male in moderate distress secondary to increased work of breathing. TUBES/LINES/DRAINS: PIV's, SCDs. SKIN: No jaundice, rashes, or lesions. Ecchymoses on upper extremities. No wounds seen anteriorly. Skin temperature appropriate. Not diaphoretic. HEAD: Atraumatic. Normocephalic. EYES: Pupils equal and round and reactive. Extraocular motions intact. No scleral icterus. No injection or drainage. ENT: Very hard of hearing, hearing aids. Nose without bleeding or purulent drainage. NECK: Trachea midline. Supple. Mass to right side of neck. CARDIOVASCULAR: Regular rate and rhythm without murmurs, gallops, or rubs. Peripheral pulses symmetric. RESPIRATORY/CHEST: Symmetric, increased work of breathing. Audible stridor noted. GASTROINTESTINAL: Abdomen soft, non-tender, nondistended. No guarding. Bowel sounds present. PEG tube in place. GENITOURINARY: Without palpable bladder distension. MUSCULOSKELETAL: Extremities without clubbing, cyanosis, or edema. No mottling or clubbing. NEUROLOGICAL: Awake and alert. Facial droop noted. Follows commands. Moves all extremities. Verbal, hoarseness, difficult to understand at times. PSYCHIATRIC: Sad, tearful. . Diagnostic Tests Laboratory Laboratory Tests Test 08/22/16 08/23/16 04:18 04:30 White Blood Count 13.9 TH/MM3 14.2 TH/MM3 (4.0-11.0) (4.0-11.0) Red Blood Count 4.60 MIL/MM3 4.24 MIL/MM3 (4.50-5.90) (4.50-5.90) Hemoglobin 11.0 GM/DL 10.6 GM/DL (13.0-17.0) (13.0-17.0) Hematocrit 35.2 % 32.7 % (39.0-51.0) (39.0-51.0) Mean Corpuscular Volume 76.5 FL 77.0 FL (80.0-100.0) (80.0-100.0) Mean Corpuscular Hemoglobin 24.0 PG 24.9 PG (27.0-34.0) (27.0-34.0) Mean Corpuscular Hemoglobin 31.4 % 32.3 % Concent (32.0-36.0) (32.0-36.0) Red Cell Distribution Width 17.7 % 17.2 % (11.6-17.2) (11.6-17.2) Platelet Count 219 TH/MM3 200 TH/MM3 (150-450) (150-450) Mean Platelet Volume 10.6 FL 10.6 FL (7.0-11.0) (7.0-11.0) Sodium Level 143 MEQ/L (136-145) Potassium Level 4.5 MEQ/L (3.5-5.1) Chloride Level 105 MEQ/L (98-107) Carbon Dioxide Level 34.1 MEQ/L (21.0-32.0) Anion Gap 4 MEQ/L (5-15) Blood Urea Nitrogen 45 MG/DL (7-18) Creatinine 1.33 MG/DL (0.60-1.30) Estimat Glomerular Filtration 62 ML/MIN (>89) Rate Random Glucose 153 MG/DL (74-106) Calcium Level 8.8 MG/DL (8.5-10.1) Neutrophils (%) (Auto) 92.3 % (16.0-70.0) Lymphocytes (%) (Auto) 1.1 % (9.0-44.0) Monocytes (%) (Auto) 6.5 % (0.0-8.0) Eosinophils (%) (Auto) 0.0 % (0.0-4.0) Basophils (%) (Auto) 0.1 % (0.0-2.0) Neutrophils # (Auto) 13.1 TH/MM3 (1.8-7.7) Lymphocytes # (Auto) 0.2 TH/MM3 (1.0-4.8) Monocytes # (Auto) 0.9 TH/MM3 (0-0.9) Eosinophils # (Auto) 0.0 TH/MM3 (0-0.4) Basophils # (Auto) 0.0 TH/MM3 (0-0.2) CBC Comment AUTO DIFF Differential Total Cells 100 Counted Neutrophils % (Manual) 89 % (16-70) Band Neutrophils % 2 % (0-6) Lymphocytes % 2 % (9-44) Monocytes % 6 % (0-8) Neutrophils # (Manual) 13.1 TH/MM3 (1.8-7.7) Metamyelocytes 1 % (0-1) Differential Comment FINAL DIFF MANUAL Platelet Estimate NORMAL (NORMAL) Platelet Morphology Comment NORMAL (NORMAL) Ovalocytes 1+ (NORMAL) Result Diagram: 08/23/16 0430 08/22/16 0418 Procedures * 08/16/16 -PEG tube placement . Assessment and Plan Disease Oriented Problem List: (1) Head and neck malignancy (2) Mass of oropharynx (3) Lung cancer (4) Aspiration pneumonia (5) Chronic kidney disease Symptom Scale: (1) Shortness of breath 0-10 Scale: 6 Comment: Secondary to neck mass. (2) Pain 0-10 Scale: 7 Comment: Secondary to oropharyngeal mass. (3) Dysphagia 0-10 Scale: Unable to quantify Comment: Secondary to oropharyngeal mass. Currently tube feeds via PEG tube. (4) Debility 0-10 Scale: Unable to quantify Comment: Progressive. Worsen for the past month and half. Pertinent Non-Medical Issues Psychosocial: . Resides with and private home. 2 children who are both disease. No service. Spiritual: Mandaeism hermila. Legal: No advance directives completed. Ethical issues impacting care: Advance directives completed. . Important Contacts Selina Mayorga . . Prognosis Mr. Mayorga is an 89-year-old male with a medical history significant for non- small cell lung cancer, head/neck cancer, anemia, peripheral vascular disease, hyperlipidemia, osteoarthritis and stroke. Patient presented to ED on 08/13/16 for evaluation of worsening neck pain and dysphagia. Patient recently diagnosed with neck cancer approximately one month ago. He was to start radiation with Dr. Eaton. Patient remains at a high risk for further complications, continue decline and . Overall prognosis is poor given her progressive lung cancer, newly diagnosed neck cancer, chronic comorbidities and physical deconditioning. . Code Status: No Code Plan * CODE STATUS: DNR/DNI. Community DNR completed. * HEALTHCARE DECISION MAKER: Patient participating with medical decision- making. Patient has a fair understanding of diagnosis, treatment choices and prognosis. He relies heavily on his 's input, recommend shared decision- making with . No advance directives completed. As per [place] law, patient 's is healthcare proxy. * GOALS OF CARE: Patient electing to transition to comfort-directed care with hospice given his worsening clinical condition and increased symptom burden. Patient electing not to proceed with palliative radiation in favor of comfort- directed care. Patient's fully supported of this decision. * Patient tells me that he does not want to go to nursing facility, he wants to go home. Reviewed with patient that is unable to care for him at home secondary to increased needs. Share concerns regarding worsening clinical status. Reviewed with patient that his prognosis is very poor and that I am afraid that he does not have much time left. Reviewed continuation of conservative management short of no code to include palliative radiation vs transition to comfort-directed care with hospice given his poor prognosis and worsening clinical status. Patient electing hospice care center at this time given increased symptom burden. * SYMPTOMS: = Shortness of breath, secondary to neck mass. Worsening. = Pain, secondary to neck mass. Hydromorphone 0.2 mg Q4h PRN available. = Dysphagia, secondary to neck mass. Nothing by mouth at this time. Tolerating tube feeds via PEG tube. = Debility, secondary to malignancy, multiple comorbidities. Currently participating in PT. Likely to worsen. * Case discussed with bedside RN Laury, case hardener Felisa and hat forming machine feeder Jazlyn. * Palliative care contact information has been provided to patient and . * Palliative care will continue to follow-up for further clarifications of goals of care as patient's clinical course continues to evolve. . Time Spent Total Floor Time (mins): 48 (Total time to include review and summarization of medical records, physical exam, goals of care conversation with patient and telephone conversation with patient's . Case reviewed with case hardener, bedside RN and hat forming machine feeder.) >50% Counseling/Coord of Care: Yes Attestation To help prompt me to consider important information that might be impacting today's encounter and assessment, information from prior notes written by myself or my colleagues may have been "brought forward" into today's note. My signature on this note, however, is an attestation that I personally performed the exam, history, and/or decision-making noted today, and, unless otherwise indicated, the interactions with patient, family, and staff as well as the review of records all occurred today. I also attest that the listed assessment and stated plan reflect my best clinical judgment today based on the combination of historical information, prior notes, and today's exam/ interactions. When time spent is documented, it refers only to time spent today by the signer, or if indicated, combined time spent today by collaborating physician/nurse practitioner. Apolonia Rodríguez Aug 23, 2016 10:55
[2016-08-23] MEDS: hydrALAZINE HCL 25 MG TAB PO SCH ×2 (11:08→12:52)
[2016-08-23 12:00] VITALS: BP 143/68; PULSE 72; RESP 16; TEMP 97.4; O2SAT 100
[2016-08-23 15:34] VITALS: O2SAT 96
[2016-08-23 16:00] VITALS: BP 141/65; PULSE 71; RESP 15; TEMP 97.5; O2SAT 99
--- NOTE | 2016-08-23 16:16 | HHI.DS ---
Discharge Summary Admission Date Aug 13, 2016 at 14:37 Discharge Date: Aug 23, 2016 Admitting Diagnosis oropharynx mass; dysphagia; dehydration; neck/lung ca (1) Mass of oropharynx ICD Code: R22.1 (2) Head and neck malignancy ICD Code: C76.0 (3) Odynophagia ICD Code: R13.10 (4) Dysphagia ICD Code: R13.10 (5) Aspiration pneumonia ICD Code: J69.0 Procedures 08/15- PEG placement Brief History - From Admission patient is an 89 years sold male with history of non small cell Lung cancer 2014 - refused treatment then. 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 He presented today with increasing anterior neck pain/discomfort and difficulty swallowing. With decreasing po intake. Patient admitted for further evaluation and management. Voice hoarseness worsening. Patient denies any fever or chills, admits to choking sensation, denies any headaches, abdominal pain, bone pain. CBC/BMP: 08/23/16 0430 08/22/16 0418 Significant Findings Laboratory Tests Test 08/22/16 08/23/16 04:18 04:30 White Blood Count 13.9 TH/MM3 14.2 TH/MM3 (4.0-11.0) (4.0-11.0) Hemoglobin 11.0 GM/DL 10.6 GM/DL (13.0-17.0) (13.0-17.0) Hematocrit 35.2 % 32.7 % (39.0-51.0) (39.0-51.0) Mean Corpuscular Volume 76.5 FL 77.0 FL (80.0-100.0) (80.0-100.0) Mean Corpuscular Hemoglobin 24.0 PG 24.9 PG (27.0-34.0) (27.0-34.0) Mean Corpuscular Hemoglobin 31.4 % Concent (32.0-36.0) Red Cell Distribution Width 17.7 % (11.6-17.2) Carbon Dioxide Level 34.1 MEQ/L (21.0-32.0) Anion Gap 4 MEQ/L (5-15) Blood Urea Nitrogen 45 MG/DL (7-18) Creatinine 1.33 MG/DL (0.60-1.30) Estimat Glomerular Filtration 62 ML/MIN (>89) Rate Random Glucose 153 MG/DL (74-106) Red Blood Count 4.24 MIL/MM3 (4.50-5.90) Neutrophils (%) (Auto) 92.3 % (16.0-70.0) Lymphocytes (%) (Auto) 1.1 % (9.0-44.0) Neutrophils # (Auto) 13.1 TH/MM3 (1.8-7.7) Lymphocytes # (Auto) 0.2 TH/MM3 (1.0-4.8) Neutrophils % (Manual) 89 % (16-70) Lymphocytes % 2 % (9-44) Neutrophils # (Manual) 13.1 TH/MM3 (1.8-7.7) Ovalocytes 1+ (NORMAL) Imaging Last Impressions Chest X-Ray 08/22/16 0000 Signed Impressions: Service Date/Time: Monday, August 22, 2016 10:39 - CONCLUSION: Stable chest with patchy airspace disease left upper lobe. Benny Esquivel MD FACR Modified Barium Swallow 08/14/16 0000 Signed Impressions: Service Date/Time: Sunday, August 14, 2016 09:40 - CONCLUSION: Penetration with possible trace aspiration noted with thin liquid. Martin Beaver MD Neck CT 08/13/16 0000 Signed Impressions: Service Date/Time: Saturday, August 13, 2016 12:40 - CONCLUSION: Mass in the low right oropharynx. Left apical lung mass. Franc Ramachandran MD PE at Discharge GENERAL: AND SKIN: Warm and dry. HEAD: Normocephalic. EYES: No scleral icterus. No injection or drainage. NECK: Supple, trachea midline. No JVD or lymphadenopathy. CARDIOVASCULAR: Regular rate and rhythm without murmurs, gallops, or rubs. RESPIRATORY: Breath sounds decrease bilaterally. No accessory muscle use. GASTROINTESTINAL: Abdomen soft, non-tender, nondistended. PEG tube in place MUSCULOSKELETAL: No cyanosis, or edema. BACK: Nontender without obvious deformity. No CVA tenderness. Hospital Course Prior to patient being transferred to hospice he was treated for History of lung cancer Head and neck metastases Appreciate input from oncology, radiation Patient is not a candidate for chemotherapy or radiosensitizing chemotherapy Hospice was consulted 08/20/16 however initially patient morning treatment with radiation, he was not appropriate edema candidate for hospice however patient change his mind and would be admitted to hospice on 08/23/16 Odynophagia, dysphagia , dysarthria from Extrinsic compression from Head and neck cancer Status post PEG tube placement Starting on tube feed Appreciate input from GI Dilaudid prn for pain Aspiration Pneumonia + lung infiltrates Underlying COPD Exacerbation Treated with Flagyl 500 mg IV.+ Levaquin Continue IV Solu Medrol every 12 hours Duo nebs qid Dyspnea Chest x-ray pending as patient with increased risk of aspiration although he is currently nothing by mouth chronic kidney insufficiency- Renal indices improving Iron deficiency anemia- Microcytic anemia- Continue supplements Ferrous sulfate 325 mg /peg bid History of hypertension- labile BP has BP 207/86 BP med were adjusted accordingly and patient was treated with amlodipine 10 mg daily and hydralazine 25 mg every 8 hour prn clonidine Generalized weakness PT to treat and eval Heparin SQ for DVT prophylaxis PPI for GI prophylaxis Pt Condition on Discharge: Deteriorating Discharge Disposition: Hospice/Med Facility Discharge Time: > 30 minutes Discharge Instructions DIET: Follow Instructions for: On Tube Feeding Activities you can perform: Regular-No Restrictions New Medications: Levofloxacin (Levaquin) 750 Mg Tablet 750 MG PO DAILY Infection #5 MG Metronidazole (Flagyl) 500 Mg Tab 500 MG PO TID Infection #15 Ref 0 TAB Amlodipine (Norvasc) 10 Mg Tab 10 MG PEG DAILY Blood Pressure Management #30 TAB Hydralazine HCl (Hydralazine HCl) 25 Mg Tablet 25 MG PO Q8HR Blood Pressure Management #90 MG Pantoprazole (Pantoprazole) 40 Mg Tab 40 MG PO DAILY Manage Heartburn #30 TAB Continued Medications: Ferrous Sulfate DR (Ferrous Sulfate DR) 325 Mg Tabdr 325 MG PO DAILY Discontinued Medications: Amlodipine (Norvasc) 5 Mg Tab 5 MG PO DAILY Blood Pressure Management #30 Ref 0 TAB Logan Leach MD Aug 23, 2016 16:16
[2016-08-23] MEDS ORDERED: AMLO10 PEG (16:19)
[2016-08-23] MEDS ORDERED: METR-1 PO (16:19)
[2016-08-23] MEDS ORDERED: LEVA750T9 PO (16:19)
[2016-08-23] MEDS ORDERED: HYDR-3799 PO (16:19)
[2016-08-23] MEDS ORDERED: PANT40TA3 PO (16:19)
--- NOTE | 2016-08-30 14:12 | PQ ---
Physician Query Response Document PATIENT: ARTURO ARAGON : 1925 ADMIT DATE: 08/13/2016 2:37 PM DISCH DATE: 08/23/2016 8:11 PM RESPONDING PROVIDER #: Jocelyn QUERY TEXT: Condition Necessitating Admission Please clarify the medical conditions and the associated clinical risk factors necessitating admissio n (Consultants document lung If you have any additional questions/comments and/or concerns, please do not hesitate to reach out to the CDI/Coding Hotline, Ext. [phone]. The patient's Clinical Indicators include: Discharge Summary documents: Hospital Course : Prior to patient being transferred to hospice he was treated for : History of lung cancer Head and neck metastases Same diagnosis as above copied into Dr. Leach's Progress Notes. Consult 08/14/16 Dr. Cartwright documents under History: admitted with neck pain and difficulty swallowin g. The patient has a history of [id number]-aayo lung cancer, was diagnosed two or three years ago but he apparently refused treatment. According to records, he was recently diagnosed with invasive head a nd neck cancer involving the right pharynx. This reportedly is a squamous cell carcinoma and he had p lans to get outpatient radiation but presented yesterday with anterior neck pain and difficulty swall owing. The patient is somewhat of a poor historian. Dr. Castanon's consult 08/14/16: PAST MEDICAL HISTORY: Past medical history of fyj-hybqw-susp lung cancer diagnosed in 2014. He had mediastinal adenopathy, clinically, stage IIIA. He has declined treatment. Hypopharyngeal squamous cell carcinoma. Query created by: Debbie Reeves on 08/27/2016 11:34 AM RESPONSE TEXT: Although patient was diagnosed with non-small cell lung cancer and had hypopharyngeal small cell carc inoma, during these hospitalizations he was not treated for those 2 diagnosis. Electronically signed by: Logan Leach MD 08/30/2016 2:07 PM
== END 2016-08-23 20:11 | disposition hospice, inpatient (51) | DRG 178 ==
LOC: NEPC 10:26 → NEDA 14:37 → N07A 18:18
PROVIDERS: ADMIT Hospitalist; ATTEND Hospitalist
PROC: 0DH68UZ Insertion of Feeding Device into Stomach, Via Natural or Artificial Opening Endoscopic (ICD-10-PCS; principal; 2016-08-15 15:25)
DX: J69.0 Pneumonitis due to inhalation of food and vomit (principal); Z68.1 Body mass index [BMI] 19.9 or less, adult; R13.19 Other dysphagia; C76.0 Malignant neoplasm of head, face and neck; E11.9 Type 2 diabetes mellitus without complications; I12.9 Hypertensive chronic kidney disease with stage 1 through stage 4 chronic kidney disease, or unspecified chronic kidney disease; D50.9 Iron deficiency anemia, unspecified; I73.9 Peripheral vascular disease, unspecified; N18.9 Chronic kidney disease, unspecified; Z85.118 Personal history of other malignant neoplasm of bronchus and lung; Z89.411 Acquired absence of right great toe; Z87.891 Personal history of nicotine dependence; R63.4 Abnormal weight loss; M19.90 Unspecified osteoarthritis, unspecified site; G89.29 Other chronic pain; M54.9 Dorsalgia, unspecified; Z86.73 Personal history of transient ischemic attack (TIA), and cerebral infarction without residual deficits; Z66 Do not resuscitate; Z51.5 Encounter for palliative care; H91.93 Unspecified hearing loss, bilateral; Z79.82 Long term (current) use of aspirin
CPT/HCPCS: 70491; 71010; 74230; 77263; 77300; 77301; 77307; 77334; 77338; 80048; 80076; 82607; 82728; 82746; 83540; 83550; 85007; 85025; 85027; 85610; 85730; 93005; 94640; 94664; 96361; 96374; 99231; C9113; J1100; J1170; J1644; J1756; J1956; J2270; J2920; J7030; J7042; Q9967